=== PATIENT | female | born 1985 | race Caucasian/White ===

== ENCOUNTER 2016-08-31 22:22 | Emergency (ER) | payer SELFPAY ==
[~2016-08-31] VITALS: Ht 167.6 cm; Wt 65.9 kg
[~2016-08-31 22:22] MED LIST: ACET1TAB40 PO; ALPR0.5T PO; BEN25 PO; CIPR500T4 PO; FLUO10CA66 PO; HYDR-3498 PO; IBUP-1542 PO; TRAZ50TA18 PO
[2016-08-31 22:34] VITALS: Ht 167.6 cm; Wt 65.9 kg
== END 2016-09-01 01:20 | disposition left against medical advice (07) ==
LOC: FTE 22:22 → E/R 09-01 01:20
DX: Z53.21 Procedure and treatment not carried out due to patient leaving prior to being seen by health care provider (principal)

== ENCOUNTER 2016-09-18 15:02 | Emergency (ER) | payer OTHER ==
[~2016-09-18] VITALS: Ht 157.5 cm; Wt 70.0 kg
[2016-09-18 15:05] VITALS: Ht 157.5 cm; Wt 70.0 kg
[2016-09-18] MEDS ORDERED: HYDROCODONE/APAP (5/325) TAB PO ONE (16:30)
--- NOTE | 2016-09-18 17:58 | RADRPT ---
PROCEDURE: XR Left Shoulder. CLINICAL INDICATION: Trauma due to a fall. Left shoulder pain. TECHNIQUE: Three views. Frontal internal rotation, frontal external rotation, and scapular Y-view . COMPARISON: No prior study is available for comparison. FINDINGS: There is no fracture or dislocation. The soft tissues are normal. Articular surfaces are intact. There is no lytic or blastic lesion. There is no radiopaque foreign body. IMPRESSION: 1. Normal images of the left shoulder. RPTAT: QQ .Marcos Brisneo MD, MD Date Time Electronically viewed and signed by .Marcos Briseno MD, on 09/18/2016 17:57 .R/
--- NOTE | 2016-09-18 17:58 | RADRPT ---
PROCEDURE: Left knee radiographs. CLINICAL INDICATION: Trauma due to a fall. Left knee pain. TECHNIQUE: Three views. Frontal, lateral, and oblique. COMPARISON: No prior studies are available for comparison. FINDINGS: There is no fracture or dislocation. The soft tissues are normal. Articular surfaces are intact. There is no lytic or blastic lesion. There is no radiopaque foreign body. IMPRESSION: 1. Normal images of the left knee. RPTAT: QQ .Marcos Briseno MD, MD Date Time Electronically viewed and signed by .Marcos Briseno MD, MD on 09/18/2016 17:58 .R/
--- NOTE | 2016-09-18 17:59 | RADRPT ---
PROCEDURE: XR Left Ankle. CLINICAL INDICATION: Trauma due to a fall. Left ankle pain. TECHNIQUE: 3 views. Frontal, lateral, and oblique. COMPARISON: 10/13/2014. FINDINGS: There is no fracture or dislocation. The soft tissues are normal. Articular surfaces are intact. There is no lytic or blastic lesion. There is no radiopaque foreign body. IMPRESSION: 1. Normal images of the left ankle. RPTAT: QQ .Marcos Briseno MD, MD Date Time Electronically viewed and signed by .Marcos Briseno MD, MD on 09/18/2016 17:59 .R/
--- NOTE | 2016-09-18 18:00 | RADRPT ---
PROCEDURE: XR Left Foot. CLINICAL INDICATION: Trauma due to a fall. Left foot pain. TECHNIQUE: Three views. Frontal, lateral, and oblique. COMPARISON: None. FINDINGS: There is no fracture or dislocation. The soft tissues are normal. Articular surfaces are intact. There is no lytic or blastic lesion. There is no radiopaque foreign body. IMPRESSION: 1. Normal images of the left foot. RPTAT: QQ .Marcos Briseno MD, MD Date Time Electronically viewed and signed by .Marcos Briseno MD, MD on 09/18/2016 18:00 .R/
[2016-09-18] MEDS ORDERED: ACET500C5 PO (18:31)
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
== END 2016-09-18 19:28 | disposition home or self-care (01) ==
LOC: FTE 15:02
DX: M79.605 Pain in left leg (principal)
CPT/HCPCS: 73030; 73562; 73610; 73630; Z7610

== ENCOUNTER 2016-12-11 23:38 | Emergency (ER) | payer SELFPAY ==
[~2016-12-11] VITALS: Ht 162.6 cm; Wt 63.5 kg
[~2016-12-11 23:38] MED LIST changes: +ACET500C5 PO
[2016-12-11 23:40] VITALS: Ht 162.6 cm; Wt 63.5 kg
== END 2016-12-12 00:50 | disposition left against medical advice (07) ==
LOC: FTE 23:38
DX: Z53.21 Procedure and treatment not carried out due to patient leaving prior to being seen by health care provider (principal)

== ENCOUNTER 2017-03-18 02:43 | Inpatient (IN) | END 2017-03-20 11:15 | disposition left against medical advice (07) | DRG 781 ==

== ENCOUNTER 2017-03-20 17:23 | Outpatient (CLI) | END 2017-03-20 17:36 | disposition left against medical advice (07) ==

== ENCOUNTER 2017-05-02 17:01 | Outpatient (CLI) | END 2017-05-02 20:42 | disposition home or self-care (01) ==

== ENCOUNTER 2017-05-20 15:20 | Inpatient (IN) | END 2017-05-22 02:00 | disposition left against medical advice (07) | DRG 781 ==

== ENCOUNTER 2017-06-07 02:53 | Outpatient (CLI) | END 2017-06-07 05:15 | disposition home or self-care (01) ==

== ENCOUNTER → 2017-09-21 | Emergency (ER) | END | disposition left against medical advice (07) ==

== ENCOUNTER 2018-07-26 13:54 | Inpatient (IN) | payer OTHER ==
[2018-07-26] VITALS (7 sets, daily range): BP systolic 97–117; BP diastolic 57–74; PULSE 53–69; RESP 18–20; Ht 177.8 cm; Wt 88.0 kg
[~2018-07-26] VITALS: Ht 177.8 cm; Wt 88.0 kg
[~2018-07-26 13:54] MED LIST changes: -ACET1TAB40 PO; -ACET500C5 PO; -ALPR0.5T PO; -BEN25 PO; +CALC600T24 PO; -CIPR500T4 PO; +FERR134T PO; -FLUO10CA66 PO; -HYDR-3498 PO; -IBUP-1542 PO; +PNV11TAB PO; -TRAZ50TA18 PO
[2018-07-26] MEDS ORDERED: TERBUTALINE 1 ML ONE (14:40)
[2018-07-26] MEDS ORDERED: TERBUTALINE 1 MG/ML INJ SC ONE (14:45)
[2018-07-26] MEDS ORDERED: CARBOPROST 250 MCG INJ IM PRN ×2 (15:00→20:00)
[2018-07-26] MEDS ORDERED: OXYTOCIN 30 UNITS/LR 500 ML IV PRN ×2 (15:00→20:00)
[2018-07-26] MEDS ORDERED: MISOPROSTOL 200 MCG TAB PR PRN ×2 (15:00→20:00)
[2018-07-26] MEDS ORDERED: CEFAZOLIN 2 GM/50 ML (PMX) 50 ML IVPB SCH ×2 (15:00→18:00)
--- NOTE | 2018-07-26 15:19 | HP ---
Date/Time of Note Date/Time of Note DATE: 07/26/18 TIME: 15:17 OB - History Hx of Present Free Text/Dictation 33-year-old 6 para 4 at 35 weeks and 2 days of gestation with estimated date of delivery August 28, 2018 Patient presents with chief complaint of abdominal pain and uterine contractions with pain level of 9 out of 10 She reports positive movement, denies any vaginal bleeding or leaking fluid GBS status is unknown Past obstetrical history significant for x4 Ectopic x1 Estimated Due Date: Aug 28, 2018 : 6 Para: 4 Care: Limited Care Past Family/Social History * Past Medical history of Syphilis in 2018 Family history noncontributory to this Past surgical history significant for x4 Ectopic x1 OB Admission Exam Physical Exam HEENT: WNL Heart: Rhythm Normal Lungs: Clear, Equal Abdomen: WNL Extremities: Normal Reflexes: Normal Cervical Dilatation: Fingertip Membranes: Intact Heart Rate: 140's Accelerations: Accelerations Present Decelerations: No Decelerations Varibility: Moderate Contractions on Admission: < 5 Minutes Apart Intensity: Moderate Last 72 hours Lab Results Urine Results - 72 Hrs Test 07/26/18 17:00 Urine Color YELLOW (YELLOW) Urine Clarity CLOUDY (CLEAR) A Urine pH 6.0 (5.0-9.0) Urine Specific [place] 1.025 (1.003-1.030) Urine Ketones NEGATIVE mg/dL (NEGATIVE) Urine Nitrite NEGATIVE mg/dL (NEGATIVE) Urine Bilirubin NEGATIVE mg/dL (NEGATIVE) Urine Urobilinogen 1+ mg/dL (NEGATIVE) H Urine Leukocyte Esterase 2+ Carina/ul (NEGATIVE) H Urine Microscopic RBC 1 /HPF (0-5) Urine Microscopic WBC 6 /HPF (0-5) H Urine Squamous Epithelial Cells FEW /HPF (FEW) Urine Mucus FEW /HPF (NONE SEEN) A Urine Hemoglobin NEGATIVE mg/dL (NEGATIVE) Urine Glucose NEGATIVE mg/dL (NEGATIVE) Urine Total Protein NEGATIVE mg/dl (NEGATIVE) Hematology - 72 Hrs Test 07/26/18 15:05 Hematocrit 28.2 % (37.0-47.0) L Hemoglobin 8.2 g/dl (12.0-16.0) L Mean Corpuscular Hemoglobin 21.9 pg (29.0-33.0) L Mean Corpuscular Hemoglobin Concent 29.1 g/dl (32.0-37.0) L Mean Corpuscular Volume 75.2 fl (82.0-101.0) L Mean Platelet Volume 9.6 fl (7.4-10.4) Platelet Count 349 10^3/UL (140-415) Red Blood Count 3.75 10^6/ul (4.20-5.40) L Red Cell Distribution Width 17.0 % (11.5-14.5) H White Blood Count 8.5 10^3/ul (4.8-10.8) Chemistry Test 07/26/18 15:05 Sodium Level 139 mmol/L (135-144) Potassium Level 4.1 mmol/L (3.5-5.1) Chloride Level 108 mmol/L (97-110) Carbon Dioxide Level 23 mmol/L (21-31) Anion Gap 8 (5-13) Blood Urea Nitrogen 11 mg/dl (7-20) Creatinine 0.67 mg/dl (0.44-1.00) Est Glomerular Filtrat Rate mL/min > 60 mL/min (>60) Glucose Level 109 mg/dl (70-220) Calcium Level 8.6 mg/dl (8.4-10.2) Total Bilirubin 0.3 mg/dl (0.2-1.3) Direct Bilirubin 0.00 mg/dl (0.00-0.20) Indirect Bilirubin 0.3 mg/dl (0-1.1) Aspartate Amino Transf (AST/SGOT) 18 IU/L (15-46) Alanine Aminotransferase (ALT/SGPT) 13 IU/L (13-69) Alkaline Phosphatase 158 IU/L (42-121) H Total Protein 6.8 g/dl (6.1-8.1) Albumin 3.3 g/dl (3.3-4.9) Globulin 3.50 g/dl (1.3-3.2) H Albumin/Globulin Ratio 0.94 PROCEDURE: US OB. CLINICAL INDICATION: Size and dates TECHNIQUE: Multiple sonographic images of the pelvis and gravid uterus were obtained. The images were reviewed on a PACS workstation. COMPARISON: No prior studies are available for comparison. FINDINGS: Gestation: Single live intrauterine gestation. Cardiac activity: 123 beats per minute. Presentation: Vertex. Placenta: Location: Anterior. Appearance: No previa or abruption. Measurements: BPD = 9.3 cm, 37 weeks and 6 days HC = 33.1 cm, 37 weeks and 4 days AC = 34.9 cm, 38 weeks and 6 days FL = 7.1 cm, 36 weeks and 2 days Gestational Age: AUA estimated gestational age: 37 weeks 5 days LMP estimated gestational age: 35 weeks 2 days AUA estimated date of delivery: 08/11/18 The EFW = 3375 g, >97%ile based on LMP age. RPTAT: AA IMPRESSION: Single live intrauterine gestation of 37 weeks 5 days by ultrasound criteria. Larger than gestational age by 2.5 weeks. .Gilberto Braswell MD, MD Date Time Electronically viewed and signed by .Gilberto Braswell MD, MD on 07/26/2018 15:42 .S/ CC: HALIMA CHAVEZ MD [phone] PROCEDURE: US OB. CLINICAL INDICATION: Pain TECHNIQUE: Multiple sonographic images of the pelvis were obtained. The images were reviewed on a PACS workstation. COMPARISON: 06/07/2017 FINDINGS: There is a single live intrauterine . cardiac activity is identified at a rate of 123 beats per minute. presentation is cephalic. Placenta is anterior grade II. Cervix is closed with a length of 2.7 cm Biophysical profile score is as follows: Breathing 2 Movements 2 Tone 2 Fluid volume 2 Amniotic fluid index = 16.5 cm Total biophysical profile score = 8/8 IMPRESSION: Biophysical profile score = 8/8 Cervix closed with a length of 2.7 cm RPTAT: HH .Kris Gonzalez MD, Date Time Electronically viewed and signed by .Kris Gonzalez MD, MD on 07/26/2018 18:01 .W/ CC: HALIMA CHAVEZ MD [phone] OB Assessment/Plan Reason for admission: labor Other plan: Admit to patient labor and delivery Continuous heart rate monitoring IV fluids Terbutaline subQ as needed Magnesium sulfate for prevention of labor Betamethasone for lung maturity ABXs prophylaxis Patient continues to have uterine contractions with pain level of 9 out of 10 despite tocolytics We will proceed with a repeat Patient counseled regarding all benefit and risks including but not limited to infection, bleeding which may require blood transfusion, trauma to other organs including bladder and bowel Patient understands the plan of care and agrees to proceed HALIMA CHAVEZ MD July 26, 2018 15:19
[2018-07-26] MEDS: BETAMET NA PHOS/AC(6 MG/ML) 2 ML INJ SYG IM SCH (15:25)
[2018-07-26] MEDS: LACTATED RINGER'S 1,000 ML IV SCH ×2 (15:25→19:27)
[2018-07-26] MEDS: CEFAZOLIN 2 GM/50 ML (PMX) 50 ML IVPB SCH (17:58)
[2018-07-26] MEDS ORDERED: MAGNESIUM SULFATE 4 GM/100 ML 100 ML IV ONE (18:00)
[2018-07-26] MEDS ORDERED: ONDANSETRON 4 MG INJ ONE (19:23)
[2018-07-26] MEDS ORDERED: CITRIC ACID/NA CITRATE 30 ML CUP ONE (19:23)
[2018-07-26] MEDS ORDERED: ONDANSETRON 4 MG INJ IV STA (19:25)
[2018-07-26] MEDS ORDERED: CITRIC ACID/NA CITRATE 30 ML CUP PO ONE ×2 (19:30→20:00)
[2018-07-26] MEDS: CEFAZOLIN 1 GM/50 ML (PMX) 50 ML IVPB SCH (19:32)
--- NOTE | 2018-07-26 19:32 | PREAC ---
Date/Time of Note Date/Time of Note DATE: 07/26/18 TIME: 19:30 Anesthesia Eval and Record Evaluation Time Pre-Procedure Interview DATE: 07/26/18 TIME: 19:30 Age 33 Sex female NPO: 8 hrs Preoperative diagnosis Repeat in Labor Planned procedure Past Medical History Past Medical History: Includes Heme: Anemia : : (6), Para: (4), Gestational age: (35) Surgery & Anesthesia Issues No known issue Meds Anticoagulation: No Beta Annamaria within 24 hr: No Reason Beta Annamaria not given: Pt. not on B-Annamaria Reported Medications Calcium Carbonate* (Calcium Carbonate*) 600 MG Ca Tab, 600 MG PO DAILY, TAB 05/20/17 Ferrous Sulfate (Iron) 134 Mg Tablet, 134 MG PO DAILY, TAB 05/20/17 [id number] ( 19) 1 Each Tablet, 1 TAB PO DAILY, TAB 05/20/17 Current Medications Lactated Ringer's 1,000 ml @ 125 mls/hr Q8H IV Last administered on 07/26/18at 15:25; Admin Dose 125 MLS/HR; Start 07/26/18 at 14:33 Terbutaline Sulfate (Brethine) 0.25 mg Q3H SC ; Start 07/26/18 at 15:00 Betamethasone Acet/Betameth SodPhos (Celestone Soluspan) 12 mg Q24H IM Last administered on 07/26/18at 15:25; Admin Dose 12 MG; Start 07/26/18 at 15:00; Stop 07/27/18 at 15:01 Cefazolin Sodium/ Dextrose 50 ml @ 100 mls/hr ONCE IVPB ; Start 07/26/18 at 15:00 Oxytocin/Lactated Ringer's 500 ml @ 0 mls/hr ONCE PRN IV .VAGINAL BLEEDING; Start 07/26/18 at 15:00 Carboprost Tromethamine (Hemabate) 250 mcg ONCE PRN IM .VAGINAL BLEEDING; Start 07/26/18 at 15:00 Misoprostol (Cytotec) 1,000 mcg ONCE PRN VT .VAGINAL BLEEDING; Start 07/26/18 at 15:00 Magnesium Sulfate 500 ml @ 50 mls/hr Q10H IV ; Start 07/26/18 at 17:35 Cefazolin Sodium/ Dextrose 50 ml @ 100 mls/hr Q8 IVPB Last administered on 07/26/18at 17:58; Admin Dose 100 MLS/HR; Start 07/26/18 at 23:00 Citric Acid/ Sodium Citrate (Bicitra) 30 ml ONCE ONCE PO ; Start 07/26/18 at 19:30; Stop 07/26/18 at 19:31 Meds reviewed: Yes Allergies Coded Allergies: fish derived (Verified Allergy, Unknown, 05/21/17) iodine (Verified Allergy, Unknown, 05/20/17) mercury (elemental) (Verified Allergy, Unknown, 05/20/17) Allergies Reviewed: Yes Labs/Studies Labs Reviewed: Reviewed by anesthesiologist Result Diagram: 07/26/18 1505 07/26/18 1505 Laboratory Tests 07/26/18 15:05 Blood Bank Test 07/26/18 15:05 Antibody Screen NEGATIVE Blood Type O POSITIVE Rh Immune Globulin Candidate NO test: Positive Studies: ECG (n/a), CXR (n/a) Pre-procedure Exam Airway: Adequate mouth opening, Adequate thyromental dist Mallampati: Mallampati II Teeth: Normal Lung: Normal Heart: Normal ASA Physical Status ASA physical status: 2 Emergency: None Planned Anesthetic Neuraxial: Spinal Planned Pain Management Sub-arachniod narcotics Pre-operative Attestations Prior to commencing anesthesia and surgery, the patient was re-evaluated, there was verification of: *The patient's identity *The results of appropriate recent lab work and preoperative vital signs *The above evaluation not changing prior to induction *Anesthetic plan, risk benefits, alternative and complications discussed with patient/family; questions answered; patient/family understands, accepts and wishes to proceed. KELSEY HICKS MD July 26, 2018 19:32
[2018-07-26] MEDS ORDERED: PHENYLephrine (100 MCG/ML) 10ML SYG ONE (19:34)
[2018-07-26] MEDS ORDERED: morphine SULFATE/PF (10 MG/10 ML) INJ ONE (19:34)
[2018-07-26] MEDS ORDERED: OXYTOCIN 10 UNIT INJ ONE (19:34)
[2018-07-26] MEDS ORDERED: OXYTOCIN 30 UNITS/LR 500 ML IV SCH (19:40)
[2018-07-26] MEDS ORDERED: LACTATED RINGER'S 1,000 ML IV SCH (19:40)
[2018-07-26] MEDS ORDERED: MAGNESIUM HYDROXIDE 30ML CUP PO PRN (20:00)
[2018-07-26] MEDS ORDERED: BISACODYL 10 MG SUPP PR PRN (20:00)
[2018-07-26] MEDS ORDERED: SENNA/DOCUSATE NA (8.6MG/50MG) TAB PO PRN (20:00)
[2018-07-26] MEDS ORDERED: METHYLERGONOVINE 0.2 MG INJ IM PRN (20:00)
[2018-07-26] MEDS ORDERED: ONDANSETRON 4 MG INJ IV ONE (20:00)
[2018-07-26] MEDS ORDERED: ACETAMINOPHEN 325 MG TAB PO PRN (20:00)
[2018-07-26] MEDS ORDERED: ONDANSETRON 4 MG INJ IV PRN ×2 (20:00→20:30)
[2018-07-26] MEDS ORDERED: METHYLERGONOVINE 0.2 MG INJ ONE (20:06)
[2018-07-26] MEDS ORDERED: MEPERIDINE 100 MG INJ ONE (20:14)
[2018-07-26] MEDS ORDERED: DEXAMETHASONE 4 MG/ML 1 ML INJ ONE (20:17)
[2018-07-26] MEDS ORDERED: KETOROLAC 30 MG INJ ONE (20:17)
[2018-07-26] MEDS ORDERED: METOCLOPRAMIDE 10 MG INJ ONE (20:17)
[2018-07-26] MEDS ORDERED: HYDROCODONE/APAP (5/325) TAB PO PRN (20:30)
[2018-07-26] MEDS ORDERED: DIPHENHYDRAMINE 50 MG INJ IV PRN (20:30)
[2018-07-26] MEDS ORDERED: NALBUPHINE HCL (10 MG/1 ML) INJ IV PRN (20:30)
[2018-07-26] MEDS ORDERED: morphine 2 MG INJ IV PRN ×2 (20:30)
[2018-07-26] MEDS ORDERED: ACETAMINOPHEN 500 MG TAB PO PRN (20:30)
[2018-07-26] MEDS ORDERED: HYDROmorphONE 0.5 MG/0.5 ML SYG IV PRN ×2 (20:30)
[2018-07-26] MEDS ORDERED: NALOXONE (0.4 MG/ML) INJ IV PRN (20:30)
--- NOTE | 2018-07-26 20:56 | OPR ---
Operative Report Planned Procedure Procedure date July 26, 2018 Procedure(s) Repeat section Performed by see signature line Acting Section Chief: KASSIE HAIR MD Anesthesiologist: KELSEY HICKS MD Pre-procedure diagnosis 1. previous x4 2. labor 3. abdominal pain with pain level 9 out of 10 high risk for uterine rupture [id number] Anesthesia Type: [id number] spinal Post-Procedure Post-procedure diagnosis 1. previous x4 2. labor 3. abdominal pain with pain level 9 out of 10 high risk for uterine rupture Findings Live Baby [girl], Apgars [8] and [9], weight [3190 g/7 pounds 1 ounce], [vertex] presentation EBL 600cc IV fluid 1200cc Urine output 500cc Estimated Blood Loss: 600 - 700 mls Specimen(s) none Grafts/Implant(s) none Complication(s) none Pt Condition post procedure: stable Disposition: PACU Procedure Description Patient was taken to the operating room after adequate amount of anesthesia was given patient was prepped and draped in normal sterile fashion Low transverse Pfannenstiel skin incision was made. Incision was carried through to the underlying layer of fascia using Bovie Fascia was incised in the midline and incision was extended bilaterally using Bovie Both anterior and posterior edge of the fascia were from underlying layer of rectus muscles Rectus muscles were in the midline and peritoneum was identified and entered sharply without any difficulty Peritoneum was extended bilaterally manually. An Damian retractor was placed 5 cm window noted in the lower uterine segment. Uterine incision was made well above the window on the uterus. Amnionic sac was ruptured and fetus was delivered from vertex presentation and after 30 seconds delayed cord clamping the fetus was handed immediately to the waiting ICU team. Placenta was delivered manually intact. Uterus was cleared off of all clots and debris. Uterine incision was closed with 1 Vicryl suture in both running locked and a second layer imbricating fashion Multiple irrigations were performed and excellent hemostasis was noted. Both adnexa appeared normal Surgicel was placed on the incision line. Damian retractor was removed Peritoneal closure proceeded with 2-0 Vicryl in a running fashion. Rectus muscles were reapproximated with 2-0 Vicryl Surgicel was placed on the rectus muscles to provide further hemostasis Fascia was closed with 0-Vicryl suture in 2 separate segments in a running fashion Subcutaneous layer was closed with 0- plain suture in a continuous fashion Skin was closed with end-sorb salvador and Dermabond glue All sponge, lap, needle counts were reported to be correct Patient tolerated the procedure well and taken back to recovery room in a stable condition HALIMA CHAVEZ MD July 26, 2018 20:56
--- NOTE | 2018-07-26 20:59 | PAC ---
Date/Time of Note Date/Time of Note DATE: 07/26/18 TIME: 20:59 Post-Anesthesia Notes Post-Anesthesia Note Last documented vital signs T: 97.8 Activity: WNL Respiratory function: WNL Cardiovascular function: WNL Mental status: Baseline Pain reasonably controlled: Yes Hydration appropriate: Yes Nausea/Vomiting absent: Yes KELSEY HICKS MD July 26, 2018 20:59
[2018-07-26] MEDS: TERBUTALINE 1 MG/ML INJ SC SCH (21:00)
[2018-07-27] MEDS: TERBUTALINE 1 MG/ML INJ SC SCH ×5 (01:37→06:00)
[2018-07-27] MEDS: MAGNESIUM SULFATE 20 GM/500 ML 500 ML IV SCH ×4 (01:38→21:40)
[2018-07-27] MEDS: KETOROLAC 30 MG INJ IV PRN ×2 (03:55→15:16)
[2018-07-27] MEDS: CEFAZOLIN 1 GM/50 ML (PMX) 50 ML IVPB SCH (03:55)
[2018-07-27 04:42] VITALS: BP 118/63; PULSE 63; RESP 18
[2018-07-27] MEDS: CEFAZOLIN 2 GM/50 ML (PMX) 50 ML IVPB SCH (06:00)
[2018-07-27] MEDS: LACTATED RINGER'S 1,000 ML IV SCH ×3 (06:33→16:27)
[2018-07-27 08:00] VITALS: BP 108/51; PULSE 67; RESP 16
--- NOTE | 2018-07-27 10:30 | QN ---
Documentation Comment POD#1 is stable afebrile tolerates diet No VB +Flatus +Adequate urine VS Stable Gen NAD Abd soft NT ND Dressing to be removed Genitalia No blood at perineum --->Ambulation --->Advance the diet RAQUEL ATWOOD M.D. July 27, 2018 10:30
[2018-07-27 12:00] VITALS: BP 107/51; PULSE 68; RESP 18
[2018-07-27] MEDS ORDERED: PENICILLIN G K 5,000,000 UNITS in DEXTROSE 5% 100 ML IVPB ONE (12:30)
[2018-07-27] MEDS: BETAMET NA PHOS/AC(6 MG/ML) 2 ML INJ SYG IM SCH (15:00)
[2018-07-27 16:00] VITALS: BP 98/63; PULSE 61; RESP 18
[2018-07-27] MEDS: PENICILLIN G K 2,500,000 UNITS in DEXTROSE 5% 50 ML IVPB SCH ×2 (17:51→21:19)
[2018-07-27] MEDS: IBUPROFEN 600 MG TAB PO PRN (20:43)
[2018-07-27] MEDS: OXYCODONE/ACETAMINOPHEN (5/325) TAB PO PRN (20:44)
[2018-07-27 20:45] VITALS: BP 116/55; PULSE 65; RESP 18
[2018-07-28] MEDS: PENICILLIN G K 2,500,000 UNITS in DEXTROSE 5% 50 ML IVPB SCH ×6 (01:19→21:40)
[2018-07-28 04:00] VITALS: BP 113/56; PULSE 70; RESP 19
[2018-07-28] MEDS: LACTATED RINGER'S 1,000 ML IV SCH (05:36)
[2018-07-28] MEDS: LANOLIN HPA 1 PKT TOP PRN (05:37)
[2018-07-28] MEDS: IBUPROFEN 600 MG TAB PO PRN ×2 (05:37→17:45)
[2018-07-28] MEDS: OXYCODONE/ACETAMINOPHEN (5/325) TAB PO PRN ×4 (05:37→20:16)
[2018-07-28 08:00] VITALS: BP 121/82; PULSE 67; RESP 16
[2018-07-28] MEDS ORDERED: SOD CHLORIDE 0.9% 1,000 ML IV SCH (09:30)
[2018-07-28 16:00] VITALS: BP 102/65; PULSE 65; RESP 17
[2018-07-28 20:30] VITALS: BP 118/69; PULSE 69; RESP 18
[2018-07-28] MEDS ORDERED: DIPHENHYDRAMINE 25 MG CAP PO ONE (23:30)
[2018-07-28] MEDS ORDERED: ACETAMINOPHEN 500 MG TAB PO ONE (23:30)
[2018-07-29] MEDS ORDERED: PENICILLIN G K 2,500,000 UNITS in DEXTROSE 5% 50 ML IVPB SCH (01:00)
[2018-07-29 04:00] VITALS: BP 113/56; PULSE 70; RESP 18
--- NOTE | 2018-07-29 04:04 | PN ---
Date/Time of Note Date/Time of Note DATE: 07/29/18 TIME: 03:59 OB Subjective Subjective Subjective Late entry note. Patient seen on 07/28/2018 at 22:00 POD#2 Patient is doing well. She denies nausea, vomiting, shortness of breath, chest pain, headache. She has been ambulating without difficulty, tolerating regular diet. Pain is well controlled on current medications OB Objective Objective Objective Vital Signs Date Temp Pulse Resp B/P (MAP) Pulse Ox O2 O2 Flow FiO2 Time Delivery Rate 07/28/18 98.2 69 18 118/69 Room Air 20:30 (85) 07/26/18 100 22:15 General: AAO X 3, comfortable, NAD, appropriate mood and affect. ABD: +BS. Soft, non-tender. Uterus 2 cm below umbilicus Incision: Clear, dry, intact. No erythema, drainage or induration. Flank: No CVA tenderness (B/L) LE: Mild edema. No clubbing, cyanosis, thigh or calf tenderness (B/L). Homans 'sign is negative OB Assessment/Plan Other plan: 33-year-old X4T6-2-7-7 s/p repeat delivery at 35 weeks and 2 days. POD#2 - AF, VSS - Contraception methods with R/B/A/FR discussed - Continue care 2) patient has history of syphilis which was treated in 2018. She was treated with penicillin G since admission for positive RPR. FTAAB ordered. Penicillin discontinued. ID consult tomorrow 3) severe anemia: She has received 1 packed RBC, second packed RBC will be given tonight. Repeat CBC in a.m. 4) Multiple social issues. Patient was seen by licensed social worker. Patient signed out to NANCY Baird July 29, 2018 04:04
[2018-07-29] MEDS: OXYCODONE/ACETAMINOPHEN (5/325) TAB PO PRN ×4 (04:08→20:51)
[2018-07-29] MEDS ORDERED: DIPHENHYDRAMINE 50 MG INJ IV ONE (05:00)
[2018-07-29] MEDS ORDERED: METHYLPREDNISOLONE 40 MG INJ IV ONE (05:00)
[2018-07-29] MEDS ORDERED: ACETAMINOPHEN 325 MG TAB PO ONE (05:00)
[2018-07-29 09:00] VITALS: BP 108/60; PULSE 56; RESP 17
[2018-07-29] MEDS: LANOLIN HPA 1 PKT TOP PRN (09:36)
--- NOTE | 2018-07-29 12:57 | CONS ---
Assessment/Plan Assessment/Plan Hospital Course (Demo Recall) 33 yo F s/p recent delivery at 35 + weeks with C section POD #2 today for who we are consulted for LE shaking and cramps * Iron deficiency likely causing lower extremity cramps, patient also noted with hypomagnesemia. * severe anemia 2/2 chronic iron deficiency with superimposed blood loss s/p transfusion of 2 units PRBC * patient has history of syphilis which was treated in 2018. She was treated with 5, 000, 0000 units penicillin G on admission for positive RPR Recommendations -Recommended counseling on maintenance of vitamin which contains magnesium, -agree with IV iron infusion to be continued orally at discharge 3 times daily for at least 1 month and then 2 times daily subsequently. -Patient should get vitamin C in addition to that to improve absorption and stool softeners to alleviate side effect of constipation. -patient will need repeat RPR in 6 and 12 months i.e Jan 2019 and July 2019 or more frequently if followup is a concern. -She was advised to communicate this to PCP -Once patient has received IV iron infusion as well as IV magnesium infusion, patient is cleared for discharge from a medical standpoint, if however patient needs to remain in-house, we will continue to follow with you. -Thank you for the consult Consultation Date/Type/Reason Admit Date/Time July 26, 2018 at 14:45 Date/Time of Note DATE: 07/29/18 TIME: 12:46 Hx of Present Illness [id number] 6 para 4 who had presented at 35 weeks and 2 days quad, with symptoms of labor and had a history of 4 prior sections and one ectopic . She underwent a repeat section with successful delivery July 26, 2018. However postoperatively she has been having some lower extremity muscle spasms and so medicine team was consulted. She did receive 2 units of packed red cells for severe anemia with hemoglobin of 6.3. Also noted is a mildly low magnesium levels as well as borderline iron deficiency which are likely responsible for her symptoms.She has had no passing out episodes, no lower extremity paresis, no numbness or focal weakness. She denies headaches, vision changes. She also denies chest pain. 12 point review if systems was done and pertinent findings are as noted. Past Medical History * anemia Home Meds Reported Medications Calcium Carbonate* (Calcium Carbonate*) 600 MG Ca Tab, 600 MG PO DAILY, TAB 05/20/17 Ferrous Sulfate (Iron) 134 Mg Tablet, 134 MG PO DAILY, TAB 05/20/17 [id number] Lrrbiexm-DX-DIB ( 19) 1 Each Tablet, 1 TAB PO DAILY, TAB 05/20/17 Medications Current Medications Acetaminophen/ Hydrocodone Bitart ([place] (5/325)) 1 tab Q4H PRN PO .PAIN 4-6; Start 07/26/18 at 20:30 Diphenhydramine HCl (Benadryl) 25 mg Q4H PRN IV .PRURITUS Last administered on 07/27/18at 13:57; Admin Dose 25 MG; Start 07/26/18 at 20:30 Nalbuphine HCl (Nubain) 10 mg Q4H PRN IV .PRURITUS; Start 07/26/18 at 20:30 Naloxone HCl (Narcan) 0.2 mg Q2M PRN IV .RESP RATE; Start 07/26/18 at 20:30 Miscellaneous Information (* Miscellaneous Pharmacy Order) DURAMORPH: 0.2 MG SPI... GIVEN NEURAXIAL XX ; Start 07/26/18 at 20:30 Oxycodone/ Acetaminophen (Percocet (5/ 325)) 1 tab Q4H PRN PO .PAIN 4-6 Last administered on 07/28/18at 05:37; Admin Dose 1 TAB; Start 07/26/18 at 20:00 Oxycodone/ Acetaminophen (Percocet (5/ 325)) 2 tab Q4H PRN PO .PAIN 7-10 Last administered on 07/29/18at 09:36; Admin Dose 2 TAB; Start 07/26/18 at 20:00 Simethicone (Mylicon) 160 mg Q8H PRN PO .GAS; Start 07/26/18 at 20:00 Lanolin (Lanolin Hpa) 1 applic BEDSIDE MEDICATION PRN TOP .NIPPLES Last administered on 07/29/18at 09:36; Admin Dose 1 APPLIC; Start 07/26/18 at 20:00 Methylergonovine Maleate (Methergine) 0.2 mg ONCE PRN IM .VAGINAL BLEEDING; Start 07/26/18 at 20:00 Carboprost Tromethamine (Hemabate) 250 mcg ONCE PRN IM .VAGINAL BLEEDING; Start 07/26/18 at 20:00 Misoprostol (Cytotec) 1,000 mcg ONCE PRN WA .VAGINAL BLEEDING; Start 07/26/18 at 20:00 Acetaminophen (Tylenol Tab) 650 mg Q6H PRN PO MILD PAIN(1-3)OR ELEVATED TEMP; Start 07/26/18 at 20:00 Ibuprofen (Motrin) 600 mg Q6H PRN PO PAIN Last administered on 07/28/18at 17:45; Admin Dose 600 MG; Start 07/26/18 at 20:00 Senna/Docusate Sodium (Senokot-S) 1 tab BID PRN PO CONSTIPATION Last administered on 07/27/18at 09:07; Admin Dose 1 TAB; Start 07/26/18 at 20:00 Magnesium Hydroxide (Milk Of Mag) 30 ml BID PRN PO CONSTIPATION; Start 07/26/18 at 20:00 Sodium Chloride 1,000 ml @ 0 mls/hr Q0M IV Last administered on 07/28/18at 10:00; Admin Dose 100 MLS/HR; Start 07/28/18 at 09:30 Ferric Sodium Gluconate Complex 125 mg/Sodium Chloride 100 ml @ 100 mls/hr DAILY@1300 IVPB Last administered on 07/29/18at 12:35; Admin Dose 100 MLS/HR; Start 07/29/18 at 13:00; Stop 07/31/18 at 13:59 Allergies: Coded Allergies: fish derived (Verified Allergy, Unknown, 05/21/17) iodine (Verified Allergy, Unknown, 05/20/17) mercury (elemental) (Verified Allergy, Unknown, 05/20/17) Past Surgical History c section x 4 tonsillectomy Family History Significant Family History: no pertinent family hx Social History Smoking Status: Never smoker Exam/Review of Systems Exam Vitals Vital Signs Date Temp Pulse Resp B/P (MAP) Pulse Ox O2 O2 Flow FiO2 Time Delivery Rate 07/29/18 98.5 70 18 113/56 Room Air 04:00 (75) 07/26/18 100 22:15 Intake and Output 07/28/18 07/28/18 07/29/18 1515:00 23:00 07:00 IntakeIntake Total 50 ml 350 ml BalanceBalance 50 ml 350 ml Constitutional: alert, oriented Head: normocephalic Eyes: PERRL Respiratory: diminished breath sounds Cardiovascular: regular rate and rhythm Gastrointestinal: soft, tender (surgical site clean) Extremities: edema (mild ) Results Result Diagram: 07/29/18 0757 07/28/18 2332 Results 24hrs Laboratory Tests Test 07/28/18 20:12 07/28/18 23:32 07/29/18 07:57 Hemoglobin 7.6 #L 7.6 L Hematocrit 26.4 L 26.0 L Sodium Level 135 Potassium Level 4.2 Chloride Level 104 Carbon Dioxide Level 28 Anion Gap 3 L Blood Urea Nitrogen 17 Creatinine 0.72 Est Glomerular Filtrat Rate mL/min > 60 Glucose Level 98 Calcium Level 8.3 L Iron Level 43 Total Iron Binding Capacity 607 H Percent Iron Saturation 7 L Ferritin 8.5 Total Bilirubin 0.3 Direct Bilirubin 0.00 Indirect Bilirubin 0.3 Aspartate Amino Transf (AST/SGOT) 36 Alanine Aminotransferase (ALT/SGPT) 17 Alkaline Phosphatase 95 Total Protein 5.4 L Albumin 2.6 L Globulin 2.80 Albumin/Globulin Ratio 0.92 White Blood Count 12.0 H Red Blood Count 3.38 L Mean Corpuscular Volume 76.9 L Mean Corpuscular Hemoglobin 22.5 L Mean Corpuscular Hemoglobin Concent 29.2 L Red Cell Distribution Width 17.6 H Platelet Count 308 Mean Platelet Volume 9.9 Immature Granulocytes % 4.300 H Neutrophils % 69.2 Lymphocytes % 15.8 Monocytes % 8.1 Eosinophils % 2.1 Basophils % 0.5 Nucleated Red Blood Cells % 0.7 H Immature Granulocytes # 0.510 H Neutrophils # 8.3 H Lymphocytes # 1.9 Monocytes # 1.0 H Eosinophils # 0.3 Basophils # 0.1 Nucleated Red Blood Cells # 0.1 H Magnesium Level 1.6 L Imaging Imaging urine tox screen negative Mag 1.6 Medications Medication Current Medications Acetaminophen/ Hydrocodone Bitart ([place] (5/325)) 1 tab Q4H PRN PO .PAIN 4-6; Start 07/26/18 at 20:30 Diphenhydramine HCl (Benadryl) 25 mg Q4H PRN IV .PRURITUS Last administered on 07/27/18at 13:57; Admin Dose 25 MG; Start 07/26/18 at 20:30 Nalbuphine HCl (Nubain) 10 mg Q4H PRN IV .PRURITUS; Start 07/26/18 at 20:30 Naloxone HCl (Narcan) 0.2 mg Q2M PRN IV .RESP RATE; Start 07/26/18 at 20:30 Miscellaneous Information (* Miscellaneous Pharmacy Order) DURAMORPH: 0.2 MG SPI... GIVEN NEURAXIAL XX ; Start 07/26/18 at 20:30 Oxycodone/ Acetaminophen (Percocet (5/ 325)) 1 tab Q4H PRN PO .PAIN 4-6 Last administered on 07/28/18 05:37; Admin Dose 1 TAB; Start 07/26/18 at 20:00 Oxycodone/ Acetaminophen (Percocet (5/ 325)) 2 tab Q4H PRN PO .PAIN 7-10 Last administered on 07/29/18 09:36; Admin Dose 2 TAB; Start 07/26/18 at 20:00 Simethicone (Mylicon) 160 mg Q8H PRN PO .GAS; Start 07/26/18 at 20:00 Lanolin (Lanolin Hpa) 1 applic BEDSIDE MEDICATION PRN TOP .NIPPLES Last administered on 07/29/18 09:36; Admin Dose 1 APPLIC; Start 07/26/18 at 20:00 Methylergonovine Maleate (Methergine) 0.2 mg ONCE PRN IM .VAGINAL BLEEDING; Start 07/26/18 at 20:00 Carboprost Tromethamine (Hemabate) 250 mcg ONCE PRN IM .VAGINAL BLEEDING; Start 07/26/18 at 20:00 Misoprostol (Cytotec) 1,000 mcg ONCE PRN [place] .VAGINAL BLEEDING; Start 07/26/18 at 20:00 Acetaminophen (Tylenol Tab) 650 mg Q6H PRN PO MILD PAIN(1-3)OR ELEVATED TEMP; Start 07/26/18 at 20:00 Ibuprofen (Motrin) 600 mg Q6H PRN PO PAIN Last administered on 07/28/18 17:45; Admin Dose 600 MG; Start 07/26/18 at 20:00 Senna/Docusate Sodium (Senokot-S) 1 tab BID PRN PO CONSTIPATION Last administered on 07/27/18 09:07; Admin Dose 1 TAB; Start 07/26/18 at 20:00 Magnesium Hydroxide (Milk Of Mag) 30 ml BID PRN PO CONSTIPATION; Start 07/26/18 at 20:00 Sodium Chloride 1,000 ml @ 0 mls/hr Q0M IV Last administered on 07/28/18at 10:00; Admin Dose 100 MLS/HR; Start 07/28/18 at 09:30 Ferric Sodium Gluconate Complex 125 mg/Sodium Chloride 100 ml @ 100 mls/hr DAILY@1300 IVPB Last administered on 07/29/18at 12:35; Admin Dose 100 MLS/HR; Start 07/29/18 at 13:00; Stop 07/31/18 at 13:59 CECI MEJÍA July 29, 2018 12:56
[2018-07-29] MEDS ORDERED: MAGNESIUM SULFATE 2 GM/50 ML 50 ML IVPB ONE (13:00)
[2018-07-29] MEDS ORDERED: SOD FERRIC GLUC COMPLX 125 MG in SOD CHLORIDE 0.9% 100 ML IVPB SCH (13:00)
[2018-07-29 17:21] VITALS: BP 127/81; PULSE 64; RESP 18
[2018-07-29] MEDS: IBUPROFEN 600 MG TAB PO PRN (18:25)
--- NOTE | 2018-07-29 19:44 | PN ---
Date/Time of Note Date/Time of Note DATE: 07/29/18 TIME: 19:33 OB Subjective Subjective Subjective Denies any nausea or vomiting, Breast feeding, Passed flatus. Had bowel movem ent. vaginal bleeding decreased. Had an episode of twiching of her legs last night.consistent with restless leg syndrome. OB Objective Objective Objective GA: A&O, NDA Abdomen: Soft, fundus palpable at the level of umbilicus. Appropriate tenderness in the incision as well as over the lower abdomen noted. Incision: Clean dry and intact Lungs: Clear to auscultation bilaterally CV: RRR Extremities: No calf tenderness, no click no edema no cord palpable Breast: No evidence of mastitis or fissure VS - Last 72 Hours, by Label Date Temp Pulse Resp B/P (MAP) Pulse Ox O2 O2 Flow FiO2 Time Delivery Rate 07/29/18 97.8 64 18 127/81 17:21 (96) 07/29/18 98.0 56 17 108/60 Room Air 09:00 (76) 07/29/18 98.5 70 18 113/56 Room Air 04:00 (75) 07/28/18 98.2 69 18 118/69 Room Air 20:30 (85) 07/28/18 98.2 65 17 102/65 Room Air 16:00 (77) 07/28/18 98.5 67 16 121/82 Room Air 08:00 (95) 07/28/18 98.5 70 19 113/56 Room Air 04:00 (75) 07/27/18 99.0 65 18 116/55 Room Air 20:45 (75) 07/27/18 98.2 61 18 98/63 (75) Room Air 16:00 07/27/18 98.0 68 18 107/51 Room Air 12:00 (69) 07/27/18 98.1 67 16 108/51 Room Air 08:00 (70) 07/27/18 98.3 63 18 118/63 Room Air 04:42 (81) 07/26/18 97.9 61 18 115/66 Room Air 23:40 (82) 07/26/18 97.7 69 20 23:15 07/26/18 59 20 114/73 23:00 (87) 07/26/18 58 20 117/74 22:45 (88) 07/26/18 57 18 115/72 Room Air 22:30 (86) 07/26/18 56 18 105/72 100 Room Air 22:15 (83) 07/26/18 97.8 53 20 97/57 (70) Room Air 22:00 Laboratory Tests Test 07/28/18 20:12 07/28/18 23:32 07/29/18 07:57 Hemoglobin 7.6 #L 7.6 L Hematocrit 26.4 L 26.0 L Sodium Level 135 Potassium Level 4.2 Chloride Level 104 Carbon Dioxide Level 28 Anion Gap 3 L Blood Urea Nitrogen 17 Creatinine 0.72 Est Glomerular Filtrat Rate mL/min > 60 Glucose Level 98 Calcium Level 8.3 L Iron Level 43 Total Iron Binding Capacity 607 H Percent Iron Saturation 7 L Ferritin 8.5 Total Bilirubin 0.3 Direct Bilirubin 0.00 Indirect Bilirubin 0.3 Aspartate Amino Transf (AST/SGOT) 36 Alanine Aminotransferase (ALT/SGPT) 17 Alkaline Phosphatase 95 Total Protein 5.4 L Albumin 2.6 L Globulin 2.80 Albumin/Globulin Ratio 0.92 White Blood Count 12.0 H Red Blood Count 3.38 L Mean Corpuscular Volume 76.9 L Mean Corpuscular Hemoglobin 22.5 L Mean Corpuscular Hemoglobin Concent 29.2 L Red Cell Distribution Width 17.6 H Platelet Count 308 Mean Platelet Volume 9.9 Immature Granulocytes % 4.300 H Neutrophils % 69.2 Lymphocytes % 15.8 Monocytes % 8.1 Eosinophils % 2.1 Basophils % 0.5 Nucleated Red Blood Cells % 0.7 H Immature Granulocytes # 0.510 H Neutrophils # 8.3 H Lymphocytes # 1.9 Monocytes # 1.0 H Eosinophils # 0.3 Basophils # 0.1 Nucleated Red Blood Cells # 0.1 H Magnesium Level 1.6 L OB Assessment/Plan Other Assessment: Status post section Postoperative #3 Severe anemia, status post blood transfusion, due to pre-existing anemia as well as postop status. Asymptomatic Severe iron deficiency, patient had symptoms of restless leg syndrome. Symptoms significantly improved after she received TE[employer] as well as magnesium Discussed with patient continue iron after discharge from the hospital twice a day Patient reports history of syphilis in the past. Labs including RPR and FTA antibody requested. Positive FTA antibody and RPR titer 1-4. Denies any symptoms. Consulted ID, 'gary Dryer's line was contacted and I talked with nurse practitioner and consult was placed. Agreed to be seen tomorrow to discharge home. Case was assigned to the upcoming OB Hospitalist for follow up tomorrow, Dr. alanis was notified Other plan: Follow-up with ID consult Continue routine postop/ care Continue iron twice a day with stool softener orally Follow-up at 2 weeks and 6 weeks postop with OB clinic after discharge from the hospital tomorrow Plan of care and follow-up for positive syphilis lab will be discussed by ID attending to the patient OTTO MACIAS MD July 29, 2018 19:44
[2018-07-29 20:30] VITALS: BP 120/73; PULSE 66; RESP 18
--- NOTE | 2018-07-29 23:07 | PD.PPDC ---
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
--- NOTE | 2018-07-29 23:12 | DS ---
Date/Time of Note Date/Time of Note DATE: 07/29/18 TIME: 23:10 Obstetrical Discharge Record Final Diagnosis Final Diagnosis: delivered Other Final Diagnosis s/p RC/S Section Section: Repeat Complications Augmentation: No Induction: No Rupture of Membranes: No Condition on Discharge Physical Assessment Last Vitals: VSS afebrile infectious disease consultation was obtained which clear the patient to be discharged Voiding: Yes Bowel Movement: Yes Breast: Soft, non-tender Abdomen and Incision: soft healing Calf Tenderness: No Patient Condition: Stable VAMSI PELAYO MD July 29, 2018 23:12
--- NOTE | 2018-07-30 04:02 | CONS ---
DATE OF ADMISSION: 07/26/2018 DATE OF CONSULTATION: TYPE OF CONSULTATION: Infectious disease for Dr. Ricardo Narayanan. REASON FOR CONSULTATION: The patient has a positive RPR of 1:4. HISTORY OF PRESENT ILLNESS: The patient is a 33-year-old white female who has currently been admitte d for . She is currently . Her child also has blood tests of 1:4. Confirmatory tests are pending. The patient state s that she has had positive titers prior to her last child, at which time she and the baby were treat ed. She apparently has remained serofast. She states that her first child got IV penicillin and she was at 3 doses 1 week apart of injectable penicillin. The patient has had no fever, rash, arthralgi a. Urine culture is positive for 50,000 to 60,000 gram mixed gram-positive organisms compatible with contamination. No clinical significance. Laboratory reveals a glucose of 112. No hemoglobin or he matocrit is obtainable. PHYSICAL EXAMINATION: GENERAL: This is a well-developed, tall white female lying in bed, holding her child in hook of her right arm. Child is asleep. The patient is alert, oriented and cooperative. VITAL SIGNS: Her temperature is 98.2, pulse 60, respirations 18, blood pressure 118/72, pulse oximet ry is 99%. NECK: Supple. No jugular venous distention. BREASTS: Engorged. CHEST: Clear. HEART: Regular. No gallop, murmur or rub. ABDOMEN: Soft. There is palpable uterus. EXTREMITIES: Reveal no edema or cyanosis. IMPRESSION: 1. Status live births. 2. Serofast syphilis. RECOMMENDATIONS: The patient needs no treatment and the child needs no treatment as a child is simpl y reflecting maternal antibody burden. Thank you for referring this patient to Dr. Narayanan. Dictated By: Kasey MOYA MD EC/NTS Conf#: [id number] DID#: [id number] CC: HALIMA CHAVEZ MD; CECI MEJÍA MD;*EndCC*
--- NOTE | 2018-07-31 00:14 | DELSUM ---
Delivery Summary A-C Datetime Report Generated by CPN: 07/31/2018 00:14 DELIVERY PERSONNEL Geodetic Engineer: Tawana Hernandez MATERNAL INFORMATION Delivery Anesthesia: Spinal Medications in Delivery: See anesthesia notes Delivery QBL (ml): 600 Placenta Cultured: No Maternal Complications: None RN Comments: history of x4 sections LABOR SUMMARY EDC: 08/28/2018 00:00 No. Babies in Womb: 1 Attempted: No Labor Anesthesia: None LABOR INFORMATION Reason for Induction: Not Applicable Oxytocin: N/A Group B Beta Strep: Not Done Antibiotics # of Doses: 3 (x2 Ancef and x1 Azithromycin) Antibiotics Time of Last Dose: 07/26/2018 20:01 Steroids Given: None Reason Steroids Not Administered: Not Applicable MEMBRANES Membranes Rupture Method: Artificial Rupture of Membranes: 07/26/2018 20:03 Length of Rupture (hr): 0.02 Amniotic Fluid Color: Clear Amniotic Fluid Amount: Moderate Amniotic Fluid Odor: Normal STAGES OF LABOR Stage 3 hr: 0 Stage 3 min: 1 CSECTION DELIVERY Primary Indication: Repeat Elective Secondary Indication: N/A CSection Urgency: Elective CSection Incidence: Repeat Labor: Labor Elective: Elective CSection Incision: Lower Uterine Transverse BABY A INFORMATION Delivery Date/Time: 07/26/2018 20:04 Method of Delivery: Born in Route : No : N/A Forceps: N/A Vacuum Extraction: N/A Shoulder Dystocia : N/A SHOULDER DYSTOCIA BABY A Delivery Date/Time: 07/26/2018 20:04 PRESENTATION/POSITION BABY A Presentation: Cephalic Cephalic Presentation: Vertex Breech Presentation: N/A PLACENTA INFORMATION BABY A Placenta Delivery Time : 07/26/2018 20:05 Placenta Method of Delivery: Manual Removal Placenta Status: Delivered SCORES BABY A Heart Rate 1 min: >100 bpm Resp Effort 1 min: Good Cry Reflex Irritability 1 min: Cough/Sneeze/Pulls Away Muscle Tone 1 min: Active Motion Color 1 min: Blue/Pale Resuscitation Effort 1 min: Tactile Stimulation SCORE 1 MIN: 8 Heart Rate 5 min: >100 bpm Resp Effort 5 min: Good Cry Reflex Irritability 5 min: Cough/Sneeze/Pulls Away Muscle Tone 5 min: Active Motion Color 5 min: Body [place], Extremit Blue Resuscitation Effort 5 min: N/A SCORE 5 MIN: 9 INFORMATION BABY A Gestational Age at Delivery: 35.2 Gestational Status: Late - 34- 36.6 Weeks Infant Outcome : Liveborn Infant Condition : Stable Infant Sex: Female IDENTIFICATION/MEDS BABY A ID Band Number: [id number] ID Band Location: Right Leg; Left Arm Sensor Applied: Yes Sensor Number: [id number] Sensor Location : Cord Clamp Vitamin K Given : Not Given Erythromycin Given: Not Given WEIGHT/LENGTH BABY A Birthweight (gm): 3190 Weight (lb): 7 Infant Weight (oz): 1 Length (in): 20.00 Infant Length (cm): 50.80 CORD INFORMATION BABY A No. Cord Vessels: 3 Nuchal Cord : N/A Cord Blood Taken: Yes Infant Suction: Mouth; Nose ASSESSMENT BABY A Complications: Decreased Variability Physical Findings at Delivery: Within Normal Limits Respirations: Appears Normal Enroller/ALS Called : Yes Infant Care By: Rl Garcia and Eleuterio Cespedes RN Transferred To: Remains with Mother
== END 2018-07-29 23:45 | disposition home or self-care (01) | DRG 786 ==
LOC: L-D 13:54 → OBT 13:54 → L-D 14:45 → PP1 23:40
PROVIDERS: ADMIT Obstetrics & Gynecology Gynecology; ATTEND Obstetrics & Gynecology Gynecology
PROC: 10D00Z1 Extraction of Products of Conception, Low, Open Approach (ICD-10-PCS; principal; 2018-07-26 19:30)
DX: O65.5 Obstructed labor due to abnormality of maternal pelvic organs (principal); O60.13X0 Preterm labor second trimester with preterm delivery third trimester, not applicable or unspecified; D62 Acute posthemorrhagic anemia; O34.211 Maternal care for low transverse scar from previous cesarean delivery; O99.02 Anemia complicating childbirth; Z3A.35 35 weeks gestation of pregnancy; Z37.0 Single live birth
CPT/HCPCS: 36415; 36430; 76815; 76817; 76818; 80053; 80307; 81001; 82728; 83540; 83735; 85014; 85018; 85025; 85610; 85730; 86592; 86703; 86803; 86850; 86900; 86901; 86920; 87086; 87285; 87340; 96360; 99464; G0463; J0690; J0702; J1100; J1200; J1885; J2175; J2210; J2270; J2274; J2370; J2405; J2590; J2765; J2916; J2920; J3105; J3475; J7120; P9016

== ENCOUNTER 2018-09-04 16:56 | Observation (INO) | payer OTHER ==
[~2018-09-04] VITALS: Ht 182.9 cm; Wt 80.4 kg
[2018-09-04 20:00] VITALS: Ht 182.9 cm; Wt 80.4 kg
[2018-09-04] MEDS ORDERED: ONDANSETRON 4 MG INJ IV PRN (20:00)
[2018-09-04] MEDS ORDERED: ACETAMINOPHEN 325 MG TAB PO PRN ×2 (20:00→20:30)
--- NOTE | 2018-09-04 20:28 | ERD ---
ER Documentation Chief Complaint Chief Complaint Pt with c/o weakness since july, hx of anemia and blood transfusion HPI 33-year-old female presenting with generalized weakness for the past 1 month. She states that she has a history of anemia her whole life. However after her 1 month ago, she had worsening anemia that required blood transfusion. At that time, she states that she was told she may have sickle cell disease. However she has never had work-up for sickle cell disease before. Her mother and grandmother both have sickle cell disease. Patient has had vaginal bleeding over the past 1 month that recently resolved. Today she was playing with her child when she is suddenly felt left-sided chest pain and shortness of breath. She had associated generalized weakness. Currently she is complaining of mild left-sided chest pain that is worse with inspiration. Her symptoms have been intermittent today. No leg swelling. No fevers or chills. No cough. ROS All systems reviewed and are negative except as per history of present illness. Medications Home Meds Reported Medications Calcium Carbonate* (Calcium Carbonate*) 600 MG Ca Tab, 600 MG PO DAILY, TAB 05/20/17 Ferrous Sulfate (Iron) 134 Mg Tablet, 134 MG PO DAILY, TAB 05/20/17 [id number] ( 19) 1 Each Tablet, 1 TAB PO DAILY, TAB 05/20/17 Allergies Allergies: Coded Allergies: fish derived (Verified Allergy, Unknown, 05/21/17) iodine (Verified Allergy, Unknown, 05/20/17) mercury (elemental) (Verified Allergy, Unknown, 05/20/17) PMhx/Soc History of Surgery: Yes (, tonsilectomy) Anesthesia Reaction: No Hx Neurological Disorder: No Hx Respiratory Disorders: No Hx Cardiac Disorders: No Hx Psychiatric Problems: Yes (depression) Hx Miscellaneous Medical Probl: Yes (anemia) Hx Alcohol Use: No Hx Substance Use: Yes (former) Hx Tobacco Use: No Smoking Status: Former smoker FmHx Mother and grandmother have sickle cell disease Physical Exam Vitals Vital Signs Date Temp Pulse Resp B/P (MAP) Pulse Ox O2 O2 Flow FiO2 Time Delivery Rate 09/04/18 53 14 96/55 (69) 100 Room Air 19:00 09/04/18 60 20 99/66 (77) 99 Room Air 18:30 09/04/18 98.3 68 20 98/54 (80) 99 17:01 Physical Exam Const: No acute distress Head: Atraumatic Eyes: Normal Conjunctiva ENT: Dry mucous membranes. Normal External Ears, Nose and Mouth. Neck: Full range of motion. No meningismus. No JVD Resp: Clear to auscultation bilaterally Cardio: Regular rate and rhythm, no murmurs. 2+ distal pulses Abd: Soft, non tender, non distended. Normal bowel sounds Skin: No petechiae or rashes Back: No midline or flank tenderness Ext: No cyanosis, or edema Neur: Awake and alert Psych: Normal Mood and Affect Result Diagram: 09/04/18 1737 09/04/18 1737 Results 24 hrs Laboratory Tests Test 09/04/18 17:37 White Blood Count 5.1 10^3/ul Red Blood Count 4.41 10^6/ul Hemoglobin 11.3 g/dl Hematocrit 36.1 % Mean Corpuscular Volume 81.9 fl Mean Corpuscular Hemoglobin 25.6 pg Mean Corpuscular Hemoglobin Concent 31.3 g/dl Red Cell Distribution Width 25.0 % Platelet Count 279 10^3/UL Mean Platelet Volume 9.1 fl Immature Granulocytes % 0.000 % Neutrophils % 65.1 % Lymphocytes % 23.8 % Monocytes % 7.6 % Eosinophils % 3.1 % Basophils % 0.4 % Nucleated Red Blood Cells % 0.0 /100WBC Immature Granulocytes # 0.000 10^3/ul Neutrophils # 3.3 10^3/ul Lymphocytes # 1.2 10^3/ul Monocytes # 0.4 10^3/ul Eosinophils # 0.2 10^3/ul Basophils # 0.0 10^3/ul Nucleated Red Blood Cells # 0.0 10^3/ul Sickle Cells NEGATIVE Absolute Reticulocyte Count 0.036 X10^6 Percent Reticulocyte Count 0.8 % Sodium Level 142 mmol/L Potassium Level 3.8 mmol/L Chloride Level 108 mmol/L Carbon Dioxide Level 27 mmol/L Anion Gap 7 Blood Urea Nitrogen 10 mg/dl Creatinine 0.87 mg/dl Est Glomerular Filtrat Rate mL/min > 60 mL/min Glucose Level 94 mg/dl Calcium Level 9.0 mg/dl Magnesium Level 2.2 mg/dl Troponin I < 0.012 ng/ml Serum HCG, Qualitative NEGATIVE Procedures/MDM EMERGENT LABS AND DIAGNOSTIC STUDIES: Lab Results above were reviewed and interpreted by me. CBC: no anemia or evidence of infection BMP: no e/o clinically significant electrolyte abnormality severe acidosis, alkalosis, renal failure, diabetic ketoacidosis Troponin within normal limits, not indicative of cardiac ischemia negative UA: no evidence of infection 12-lead EKG #1 was interpreted by Dale Molina MD: Sinus bradycardia at 57 bpm Normal axis Normal intervals Diffuse T wave inversions No acute ST or T wave changes suggestive of acute ischemia or STEMI. 12-lead EKG #2 was interpreted by Dale Molina MD: Sinus bradycardia at 52 bpm Normal axis Normal intervals Anterior nonspecific T wave abnormality No acute ST or T wave changes suggestive of acute ischemia or STEMI. Radiology Results as interpreted by Radiology below were reviewed by Allie Molina MD: Chest x-ray shows no acute abnormalities Initial Nursing notes reviewed. Previous Medical Records requested via the Electronic Health Record. EMERGENCY DEPARTMENT COURSE / MEDICAL DECISION MAKING: Patient is presenting with generalized weakness and new onset chest pain with shortness of breath with exertion. Vitals were unremarkable upon arrival. EKG did show evidence of possible ischemia. Work-up did not show any evidence of significant anemia that would explain her symptoms. Initial troponin was within normal limits. Repeat EKG showed some improvement in the T wave changes seen on initial EKG. At this time, the cause of her pain is unclear. I did consider pulmonary embolism and discussed this with the admitting doctor. Further studies will be deferred to the inpatient physician. Patient will be admitted for observation on telemetry. The patient was concerned about possible anemia as the cause for her symptoms. Given the possibility of undiagnosed sickle cell disease, sickle cell screen was done and was negative. Accepting Care Team: Current data and ongoing care discussed. Time: Time of admission Primary Provider: Dr. Dima Goff Diagnosis: Primary Impression: Chest pain Chest pain type: other chest pain Qualified Codes: R07.89 - Other chest pain Additional Impressions: Generalized weakness Anemia, chronic disease Condition: Fair MENA MOLINA MD Sep 04, 2018 20:28
[2018-09-04] MEDS ORDERED: NACL 0.9% 3 ML SYG IV SCH (20:30)
[2018-09-04] MEDS ORDERED: NITROGLYCERIN (SL) 0.4 MG TAB SL PRN (20:30)
[2018-09-04] MEDS ORDERED: morphine 2 MG INJ IV PRN (20:30)
[2018-09-04] MEDS ORDERED: SOD CHLORIDE 0.9% 500 ML IV ONE (20:30)
[2018-09-04] MEDS ORDERED: BISACODYL (EC) 5 MG TAB PO PRN (20:30)
[2018-09-04] MEDS ORDERED: DOCUSATE SODIUM 100 MG CAP PO PRN (20:30)
[2018-09-04 20:51] VITALS: BP 103/58; PULSE 61; RESP 18
--- NOTE | 2018-09-04 22:59 | HP ---
Date/Time of Note Date/Time of Note DATE: 09/04/18 TIME: 22:59 Assessment/Plan VTE Prophylaxis Pharmacological prophylaxis: LMWH Lines/Catheters IV Catheter Type (from Nrs): Saline Lock Assessment/Plan Hospital Course This is a 33-year female being admitted to the telemetry floor for: #1 chest pain: Rule out ACS versus pulmonary embolism versus arrhythmia versus cardiomyopathy. Patient does report generalized weakness and episodes of chest pain over the last month. She reports pleuritic pain on inspiration. Will obtain a CT of the chest to rule out pulmonary embolism especially given her hypercoagulable state being . EKG shows sinus bradycardia with telemetry monitoring showing heart rate going down to his low as the 30s. Will check an echocardiogram. TSH, Urine drug screen. Will trend cardiac enzymes. Will consult cardiology #2 iron deficiency anemia: We will check iron stores, currently her hemoglobin is at an acceptable value. Watch hemoglobin closely. #3 history of syphilis: Patient was seen during her previous admission in regards to this patient was treated in the past. She was still found positive for RPR. She will need to repeat labs as an outpatient in January 2019 and July 2019 #4 DVT GI prophylaxis: Lovenox, no GI prophylaxis indicated Further treatment strategy will be implemented for clinical course Result Diagram: 09/04/18 1737 09/04/18 1737 Results 24hrs Laboratory Tests Test 09/04/18 17:37 09/04/18 20:09 09/04/18 20:19 White Blood Count 5.1 # Red Blood Count 4.41 # Hemoglobin 11.3 #L Hematocrit 36.1 #L Mean Corpuscular Volume 81.9 L Mean Corpuscular Hemoglobin 25.6 L Mean Corpuscular Hemoglobin Concent 31.3 L Red Cell Distribution Width 25.0 #H Platelet Count 279 Mean Platelet Volume 9.1 Immature Granulocytes % 0.000 L Neutrophils % 65.1 Lymphocytes % 23.8 Monocytes % 7.6 Eosinophils % 3.1 Basophils % 0.4 Nucleated Red Blood Cells % 0.0 Immature Granulocytes # 0.000 Neutrophils # 3.3 Lymphocytes # 1.2 Monocytes # 0.4 Eosinophils # 0.2 Basophils # 0.0 Nucleated Red Blood Cells # 0.0 Sickle Cells NEGATIVE Absolute Reticulocyte Count 0.036 Percent Reticulocyte Count 0.8 Sodium Level 142 Potassium Level 3.8 Chloride Level 108 Carbon Dioxide Level 27 Anion Gap 7 Blood Urea Nitrogen 10 Creatinine 0.87 Est Glomerular Filtrat Rate mL/min > 60 Glucose Level 94 Calcium Level 9.0 Magnesium Level 2.2 Troponin I < 0.012 Serum HCG, Qualitative NEGATIVE Urine Color YELLOW Urine Clarity CLEAR Urine pH 6.0 Urine Specific [place] 1.019 Urine Ketones NEGATIVE Urine Nitrite NEGATIVE Urine Bilirubin NEGATIVE Urine Urobilinogen NEGATIVE Urine Leukocyte Esterase NEGATIVE Urine Hemoglobin NEGATIVE Urine Glucose NEGATIVE Urine Total Protein NEGATIVE POC Beta HCG, Qualitative NEGATIVE HPI/ROS Admit Date/Time Admit Date/Time Sep 04, 2018 at 19:41 Hx of Present Illness Chief complaint: Generalized weakness, chest pain 33-year-old female presenting with generalized weakness for the past 1 month. She states that she has a history of anemia her whole life. However after her 1 month ago, she had worsening anemia that required blood transfusion. At that time, she states that she was told she may have sickle cell disease. However she has never had work-up for sickle cell disease before. Her mother and grandmother both have sickle cell disease. Patient has had vaginal bleeding over the past 1 month that recently resolved. Today she was playing with her child when she is suddenly felt left-sided chest pain and shortness of breath. She had associated generalized weakness since her delivery.. She does report pleuritic chest pain on inspiration.. Her symptoms have been intermittent today. Denies any leg swelling or orthopnea. Allergies: NKDA Medications: Iron supplements ROS Const: As per HPI Eyes : No pain discharge or redness or change in visual acuity ENT: No pain, sore throat, congestion, congestion, dysphagia or discharge Respiratory: As per HPI Cardiovascular: As per HPI GI : no change in appetite, abdominal pain, nausea, vomiting, diarrhea, constipation, or change in the color his stool Genitourinary: No dysuria, hematuria, flank pain , discharge or CVA tenderness Musculoskeletal: No joint pain, back pain, neck pain, restricted range of motion in neck or joints Skin: No rash, bruising or hives Neuro: No headache, dizziness, syncope, seizure, focal weakness Endocrine: No polyuria, polydipsia, temperature intolerance Psych: No hallucination, depression, anxiety or suicidal ideation PMH/Family/Social Past Medical History Chronic anemia, iron deficiency, history of syphilis Medications Current Medications Ondansetron HCl (Zofran Inj) 4 mg ER BRIDGE PRN IV NAUSEA/VOMITING; Start 09/04/18 at 20:00; Stop 09/05/18 at 19:59 Acetaminophen (Tylenol Tab) 650 mg ER BRIDGE PRN PO .MILD PAIN 1-3 OR TEMP; Start 09/04/18 at 20:00; Stop 09/05/18 at 19:59 Calcium Carbonate (Oyster Shell Calcium) 1.25 gm DAILY PO ; Start 09/05/18 at 09:00 Miscellaneous Information 134 mg DAILY PO ; Start 09/05/18 at 09:00; Status UNV IV Flush (NS 3 ml) 3 ml PER PROTOCOL IV ; Start 09/04/18 at 20:30 Nitroglycerin (Nitroglycerin (Sl Tab) 0.4 Mg) 1 tab Q5M PRN SL .CHEST PAIN; Start 09/04/18 at 20:30 Acetaminophen (Tylenol Tab) 650 mg Q6H PRN PO .PAIN 1-3 OR TEMP; Start 09/04/18 at 20:30 Morphine Sulfate (morphine) 2 mg Q4H PRN IV .PAIN 7-10; Start 09/04/18 at 20:30 Docusate Sodium (Colace) 100 mg Q12H PRN PO .CONSTIPATION; Start 09/04/18 at 20:30 Bisacodyl (Dulcolax) 5 mg DAILY PRN PO .CONSTIPATION; Start 09/04/18 at 20:30 Coded Allergies: fish derived (Verified Allergy, Unknown, 05/21/17) iodine (Verified Allergy, Unknown, 05/20/17) mercury (elemental) (Verified Allergy, Unknown, 05/20/17) Past Surgical History x5 Family History Significant Family History: no pertinent family hx Social History Alcohol Use: none Smoking Status: Never smoker Drug Use: none Exam/Review of Systems Vital Signs Vitals Vital Signs Date Temp Pulse Resp B/P (MAP) Pulse Ox O2 O2 Flow FiO2 Time Delivery Rate 09/04/18 98.1 61 18 103/58 98 20:51 (73) 09/04/18 Room Air 20:00 Exam Exam General: Patient is currently lying in bed in no acute distress, she does appear lethargic HEENT: Atraumatic, normocephalic. The pupils are equal, round and reactive. Extraocular motor are intact Neck: Supple with full range of motion. No rigidity or meningismus Chest: Nontender Lungs: Clear to auscultation bilaterally no crackles rales or wheezing Heart: Normal S1-S2, Regular rhythm and rate. No overt murmurs appreciated on auscultation Abdomen: Soft , nontender, nondistended , bowel sounds are present. No guarding no rebound tenderness , No masses or organomegaly. No costovertebral temporal angle mass Extremities: Normal to inspection, no edema no cyanosis Neurologic: Normal mental status, speech normal, cranial nerves II through XII are intact, motor and sensory are intact, Additional Comments EKG: Sinus bradycardia, with T wave inversions PROCEDURE: XR Chest. CLINICAL INDICATION: Chest pain TECHNIQUE: A single AP view of the chest was obtained. COMPARISON: None. FINDINGS: No focal airspace opacification, pleural effusion or pneumothorax is seen. The cardiomediastinal silhouette is within normal limits for size. The osseous structures are unremarkable. IMPRESSION: Unremarkable chest x-ray. RPTAT: HH .Cris Mandel MD, MD Date Time Electronically viewed and signed by .Cris Mandel MD, MD on 09/04/2018 18:56 .G/ CC: MENA JACKSON MD [id number] KRISTIN ARROYO Sep 04, 2018 22:59
[2018-09-04] MEDS ORDERED: IOHEXOL 100 ML ONE (23:02)
[2018-09-04] MEDS ORDERED: SOD CHLORIDE 0.9% 100 ML ONE (23:02)
[2018-09-05] VITALS (7 sets, daily range): BP systolic 94–107; BP diastolic 50–64; PULSE 47–60; RESP 18–20
[2018-09-05] MEDS: FERROUS SULFATE (EC) 325 MG TAB PO SCH (08:28)
[2018-09-05] MEDS: CALCIUM CARBONATE 1.25 GM TAB PO SCH (08:28)
[2018-09-05] MEDS: ENOXAPARIN 40 MG/0.4 ML SYG SC SCH (08:33)
--- NOTE | 2018-09-05 10:25 | PN ---
Date/Time of Note Date/Time of Note DATE: 09/05/18 TIME: 10:25 Assessment/Plan VTE Prophylaxis Risk score (from Ns)>0 risk: 1 [place] [facility] [place] contraindicated: patient refusal Pharmacological prophylaxis: LMWH Lines/Catheters [facility] Saline Lock Assessment/Plan Hospital Course SUBJECTIVE: Feeling tired. Denies any chest pain at this time. OBJECTIVE: Physical Exam General: Adequately build 33 year-old female lying in bed in no apparent distress. HEENT: Normocephalic, atraumatic. Eyes: Anicteric sclerae, conjunctivae clear. ENT: Nasal septum midline, oral mucosa moist. Neck supple. Respiratory: Bilaterally clear breath sounds. No use of accessory muscles of respiration. No adventitious breath sounds. Cardiovascular: S1, S2 heard. No murmurs or gallops. Abdomen: Soft, nontender, and nondistended. Bowel sounds positive in all 4 quadrants. Genitourinary: Deferred. Extremities: No cyanosis, no clubbing, no edema. Peripheral pulses palpable. Neurologic: Cranial nerves II through XII grossly intact. The patient is awake, alert, and oriented. Skin: Normal skin turgor. No skin rashes. Multiple tattoos. Labs & Vitals per chart ASSESSMENT & PLAN This is a 33-year-old female who has a remote history of syphilis with no other significant past medical history who came to the emergency room with chief complaint of generalized weakness and chest pain, who was found to have underlying significant bradycardia and was admitted to inpatient setting for further treatment and evaluation. 1. Chest pain. Atypical in nature. Troponins negative so far. Pending 2D echocardiogram. Pending cardiology consult. CTA negative for any PE. 2. Bradycardia. Continue telemetry monitoring. Pending cardiology consult. TSH WNL. 3. History of syphilis. Status post treatment. Repeat labs as outpatient to be done in January 2019 and July 2019. 4. History of iron deficiency anemia. Iron panel showing adequate iron levels. Continue iron supplements. 5. Status post recent on 07/26/2018. Patient currently not breast-feeding. 6. Fluids, electrolytes, and nutrition. Regular diet. 7. DVT prophylaxis. Subcutaneous Lovenox. 8. Plan. Continue telemetry monitoring. Await cardiology evaluation. Obtain a urine drug screen. The patient was seen in collaboration with Dr. Hightower. Result Diagram: 09/05/18 0456 09/05/18 0456 Results 24hrs Laboratory Tests Test 09/04/18 17:37 09/04/18 20:09 09/04/18 20:19 09/04/18 23:05 White Blood Count 5.1 # Red Blood Count 4.41 # Hemoglobin 11.3 #L Hematocrit 36.1 #L Mean Corpuscular 81.9 L Volume Mean Corpuscular 25.6 L Hemoglobin Mean Corpuscular 31.3 L Hemoglobin Concent Red Cell 25.0 #H Distribution Width Platelet Count 279 Mean Platelet Volume 9.1 Immature 0.000 L Granulocytes % Neutrophils % 65.1 Lymphocytes % 23.8 Monocytes % 7.6 Eosinophils % 3.1 Basophils % 0.4 Nucleated Red Blood 0.0 Cells % Immature 0.000 Granulocytes # Neutrophils # 3.3 Lymphocytes # 1.2 Monocytes # 0.4 Eosinophils # 0.2 Basophils # 0.0 Nucleated Red Blood 0.0 Cells # Sickle Cells NEGATIVE Absolute 0.036 Reticulocyte Count Percent Reticulocyte 0.8 Count Sodium Level 142 Potassium Level 3.8 Chloride Level 108 Carbon Dioxide Level 27 Anion Gap 7 Blood Urea Nitrogen 10 Creatinine 0.87 Est Glomerular > 60 Filtrat Rate mL/min Glucose Level 94 Calcium Level 9.0 Magnesium Level 2.2 Troponin I < 0.012 < 0.012 Serum HCG, NEGATIVE Qualitative Urine Color YELLOW Urine Clarity CLEAR Urine pH 6.0 Urine Specific 1.019 [place] Urine Ketones NEGATIVE Urine Nitrite NEGATIVE Urine Bilirubin NEGATIVE Urine Urobilinogen NEGATIVE Urine Leukocyte NEGATIVE Esterase Urine Hemoglobin NEGATIVE Urine Glucose NEGATIVE Urine Total Protein NEGATIVE POC Beta HCG, NEGATIVE Qualitative Creatine Kinase 43 Creatine Kinase 0.5 Index Creatinine Kinase MB < 0.22 (Mass) Test 09/05/18 04:56 White Blood Count 4.8 Red Blood Count 4.28 Hemoglobin 11.0 L Hematocrit 35.2 L Mean Corpuscular 82.2 Volume Mean Corpuscular 25.7 L Hemoglobin Mean Corpuscular 31.3 L Hemoglobin Concent Red Cell Distribution Width Platelet Count 288 Mean Platelet Volume 9.7 Immature 0.200 Granulocytes % Neutrophils % 54.6 Lymphocytes % 30.2 Monocytes % 10.3 Eosinophils % 4.1 Basophils % 0.6 Nucleated Red Blood 0.0 Cells % Immature 0.010 Granulocytes # Neutrophils # 2.6 Lymphocytes # 1.5 Monocytes # 0.5 Eosinophils # 0.2 Basophils # 0.0 Nucleated Red Blood 0.0 Cells # Sodium Level 142 Potassium Level 4.0 Chloride Level 106 Carbon Dioxide Level 25 Anion Gap 11 Blood Urea Nitrogen 12 Creatinine 0.79 Est Glomerular > 60 Filtrat Rate mL/min Glucose Level 84 Hemoglobin A1c 4.7 Calcium Level 9.1 Magnesium Level 1.9 Iron Level 64 Total Iron Binding 287 Capacity Percent Iron 22 Saturation Ferritin 24.5 Total Bilirubin 0.3 Direct Bilirubin 0.00 Indirect Bilirubin 0.3 Aspartate Amino 12 L Transf (AST/SGOT) Alanine 13 Aminotransferase (AL T/SGPT) Alkaline Phosphatase 56 Creatine Kinase 39 Creatine Kinase 0.6 Index Creatinine Kinase MB < 0.22 (Mass) Troponin I < 0.012 Total Protein 6.2 Albumin 3.5 Globulin 2.70 Albumin/Globulin 1.29 Ratio Thyroid Stimulating 1.200 Hormone (TSH) Exam/Review of Systems Exam Vitals Vital Signs Date Temp Pulse Resp B/P (MAP) Pulse Ox O2 O2 Flow FiO2 Time Delivery Rate 09/05/18 98.2 49 18 96/54 (68) 100 Room Air 07:05 09/05/18 2.0 02:59 Intake and Output 09/04/18 09/04/18 09/05/18 1515:00 23:00 07:00 IntakeIntake Total 500 ml BalanceBalance 500 ml Results Results 24hrs Laboratory Tests Test 09/04/18 17:37 09/04/18 20:09 09/04/18 20:19 09/04/18 23:05 White Blood Count 5.1 # Red Blood Count 4.41 # Hemoglobin 11.3 #L Hematocrit 36.1 #L Mean Corpuscular 81.9 L Volume Mean Corpuscular 25.6 L Hemoglobin Mean Corpuscular 31.3 L Hemoglobin Concent Red Cell 25.0 #H Distribution Width Platelet Count 279 Mean Platelet Volume 9.1 Immature 0.000 L Granulocytes % Neutrophils % 65.1 Lymphocytes % 23.8 Monocytes % 7.6 Eosinophils % 3.1 Basophils % 0.4 Nucleated Red Blood 0.0 Cells % Immature 0.000 Granulocytes # Neutrophils # 3.3 Lymphocytes # 1.2 Monocytes # 0.4 Eosinophils # 0.2 Basophils # 0.0 Nucleated Red Blood 0.0 Cells # Sickle Cells NEGATIVE Absolute 0.036 Reticulocyte Count Percent Reticulocyte 0.8 Count Sodium Level 142 Potassium Level 3.8 Chloride Level 108 Carbon Dioxide Level 27 Anion Gap 7 Blood Urea Nitrogen 10 Creatinine 0.87 Est Glomerular > 60 Filtrat Rate mL/min Glucose Level 94 Calcium Level 9.0 Magnesium Level 2.2 Troponin I < 0.012 < 0.012 Serum HCG, NEGATIVE Qualitative Urine Color YELLOW Urine Clarity CLEAR Urine pH 6.0 Urine Specific 1.019 [place] Urine Ketones NEGATIVE Urine Nitrite NEGATIVE Urine Bilirubin NEGATIVE Urine Urobilinogen NEGATIVE Urine Leukocyte NEGATIVE Esterase Urine Hemoglobin NEGATIVE Urine Glucose NEGATIVE Urine Total Protein NEGATIVE POC Beta HCG, NEGATIVE Qualitative Creatine Kinase 43 Creatine Kinase 0.5 Index Creatinine Kinase MB < 0.22 (Mass) Test 09/05/18 04:56 White Blood Count 4.8 Red Blood Count 4.28 Hemoglobin 11.0 L Hematocrit 35.2 L Mean Corpuscular 82.2 Volume Mean Corpuscular 25.7 L Hemoglobin Mean Corpuscular 31.3 L Hemoglobin Concent Red Cell Distribution Width Platelet Count 288 Mean Platelet Volume 9.7 Immature 0.200 Granulocytes % Neutrophils % 54.6 Lymphocytes % 30.2 Monocytes % 10.3 Eosinophils % 4.1 Basophils % 0.6 Nucleated Red Blood 0.0 Cells % Immature 0.010 Granulocytes # Neutrophils # 2.6 Lymphocytes # 1.5 Monocytes # 0.5 Eosinophils # 0.2 Basophils # 0.0 Nucleated Red Blood 0.0 Cells # Sodium Level 142 Potassium Level 4.0 Chloride Level 106 Carbon Dioxide Level 25 Anion Gap 11 Blood Urea Nitrogen 12 Creatinine 0.79 Est Glomerular > 60 Filtrat Rate mL/min Glucose Level 84 Hemoglobin A1c 4.7 Calcium Level 9.1 Magnesium Level 1.9 Iron Level 64 Total Iron Binding 287 Capacity Percent Iron 22 Saturation Ferritin 24.5 Total Bilirubin 0.3 Direct Bilirubin 0.00 Indirect Bilirubin 0.3 Aspartate Amino 12 L Transf (AST/SGOT) Alanine 13 Aminotransferase (AL T/SGPT) Alkaline Phosphatase 56 Creatine Kinase 39 Creatine Kinase 0.6 Index Creatinine Kinase MB < 0.22 (Mass) Troponin I < 0.012 Total Protein 6.2 Albumin 3.5 Globulin 2.70 Albumin/Globulin 1.29 Ratio Thyroid Stimulating 1.200 Hormone (TSH) Medications Medication Current Medications Ondansetron HCl (Zofran Inj) 4 mg ER BRIDGE PRN IV NAUSEA/VOMITING; Start 09/04/18 at 20:00; Stop 09/05/18 at 19:59 Acetaminophen (Tylenol Tab) 650 mg ER BRIDGE PRN PO .MILD PAIN 1-3 OR TEMP; Start 09/04/18 at 20:00; Stop 09/05/18 at 19:59 Calcium Carbonate (Oyster Shell Calcium) 1.25 gm DAILY PO Last administered on 09/05/18at 08:28; Admin Dose 1.25 GM; Start 09/05/18 at 09:00 Ferrous Sulfate (Ferrous Sulfate (Ec)) 325 mg DAILY PO Last administered on 09/05/18at 08:28; Admin Dose 325 MG; Start 09/05/18 at 09:00 IV Flush (NS 3 ml) 3 ml PER PROTOCOL IV ; Start 09/04/18 at 20:30 Nitroglycerin (Nitroglycerin (Sl Tab) 0.4 Mg) 1 tab Q5M PRN SL .CHEST PAIN; Start 09/04/18 at 20:30 Acetaminophen (Tylenol Tab) 650 mg Q6H PRN PO .PAIN 1-3 OR TEMP; Start 09/04/18 at 20:30 Morphine Sulfate (morphine) 2 mg Q4H PRN IV .PAIN 7-10; Start 09/04/18 at 20:30 Docusate Sodium (Colace) 100 mg Q12H PRN PO .CONSTIPATION; Start 09/04/18 at 20:30 Bisacodyl (Dulcolax) 5 mg DAILY PRN PO .CONSTIPATION; Start 09/04/18 at 20:30 Enoxaparin Sodium (Lovenox) 40 mg DAILY SC Last administered on 09/05/18at 08:33; Admin Dose 40 MG; Start 09/05/18 at 09:00 JOSEPH BEDOLLA NP Sep 05, 2018 10:25
--- NOTE | 2018-09-05 15:49 | RADRPT ---
Echocardiogram Report Patient Name: David DICKtient ID: [id number] : 1985 (33y 6m)Study Date: 09/05/2018 7:57:21 AM Gender: FAccession #: [id number] Tech: Vincent Mayo KE Location: 60- Ref.Physician: KRISTIN ARROYO Height(Cm): BSA: Weight(Kg): Quality: AdequateOrder Physician: KRISTIN ARROYO Account #: Procedures: Echocardiographic Report: Transthoracic echocardiogram with complete 2D, M-Mode, and doppler examination. Indications: Chest Pain. Measurements: 2D/M Mode Doppler Measurement Value Normal Range Measurement Value Normal Range LVIDd 2D 3.4 [ 3.8 - 5.2 ] cm AV Peak Christoph 1.3 [ 100.0 - 170.0 ] cm/se c LVIDs 2D 2.3 [ 2.2 - 3.5 ] cm AV Peak PG 6.0 [ 2.0 - 9.0 ] mmHg LVPWd 2D 0.8 [ 0.6 - 0.9 ] cm LVOT Peak Christoph 0.8 [ 70.0 - 110.0 ] cm/sec IVSd 2D 0.7 [ 0.6 - 0.9 ] cm LVOT Peak PG 3.0 [ 2.0 - 6.0 ] mmHg AoR Diam 2D 2.4 [ 2.3 - 3.1 ] cm MV E Peak Christoph 0.7 [ 60.0 - 130.0 ] cm/sec EDV 2D 46.1 [ 46.0 - 106.0 ] ml MV A Peak Christoph 0.5 [ 100.0 - 120.0 ] cm/se c ESV 2D 17.1 [ 14.0 - 42.0 ] ml MV E/A 1.6 [ 0.8 - 1.5 ] ratio EF 2D 62.9 [ 54.0 - 74.0 ] percent MV PHT 60.0 [ 20.0 - 100.0 ] msec LA Dimen 2D 2.7 [ 2.7 - 3.8 ] cm MV Decel Time 204 [ 104 - 258 ] msec MV Decel [place] 4 Lat E` Christoph 0.1 [ 10.0 - 15.0 ] cm/sec Lateral E/E` 5.0 [ 1.0 - 2.0 ] ratio Med E` Christoph 0.1 cm/sec MV E/A 1.6 [ 0.8 - 1.5 ] ratio MVA PHT 3.7 [ 2.0 - 4.0 ] cm2 TR Peak Christoph 2.0 [ 100.0 - 280.0 ] cm/se c TR Peak PG 17.0 mmHg PV Peak Christoph 1.1 [ 40.0 - 80.0 ] cm/sec PV Peak PG 4.0 mmHg Findings: Left Ventricle: Normal left ventricular systolic function. Normal left ventricular cavity size. Normal left ventricular wall thickness. Ejection fraction is visually estimated at 55-60 %. Tissue Doppler/Mitral Doppler indices are within normal limits. Right Ventricle: Normal right ventricular size. Normal right ventricular systolic function. Left Atrium: The left atrium is normal in size. Right Atrium: The right atrium is normal in size. Atrial Septum: Normal atrial septum. Ventricular septum: Normal/intact ventricular septum. Mitral Valve: Normal appearance of the mitral valve. No mitral valve regurgitation is seen. Aortic Valve: Normal appearance of the aortic valve. No aortic regurgitation. Tricuspid Valve: Normal appearance of the tricuspid valve. The estimated Peak RVSP is 19 mmHg. There is mild tricuspid regurgitation. Pulmonic Valve: Normal pulmonic valve appearance. No evidence of pulmonic regurgitation. Pericardium: Normal pericardium with no significant pericardial effusion. Aorta: Normal aortic root. IVC: Normal size and normal respiratory collapse consistent with normal right atrial pressure. Conclusions: Normal left ventricular systolic function. Normal left ventricular cavity size. Normal left ventricular wall thickness. Ejection fraction is visually estimated at 55-60 %. Tissue Doppler/Mitral Doppler indices are within normal limits. No significant valvular stenosis or regurgitation seen. The estimated Peak RVSP is 19 mmHg. Normal size and normal respiratory collapse consistent with normal right atrial pressure. Electronically Signed By: Cullen Funk 2018-09-05 15:48:43 PDT
--- NOTE | 2018-09-05 16:05 | CONS ---
Assessment/Plan Assessment/Plan Hospital Course (Demo Recall) Orthostatic dizziness: she thinks she hydrates well but possibly from dehydration. Sinus bradycardia on tele does not explain this. EF is normal Chest pain: pleuritic and possibly muscular. CTA normal. Trops and echo normal. Subtle TW changes on EKG are nonspecific. No suspicion for CAD Anemia: last month was 7.3. Here 11. Either it recovered or she is hemoconcentrated Recent C section -check orthostatics -hydrate if positive -otherwise ok for d/c from cardiac perspective. No further testing indicated Consultation Date/Type/Reason Admit Date/Time Sep 04, 2018 at 19:41 Date of Consultation: Sep 05, 2018 Type of Consult Cardiology Reason for Consultation Chest pain Requesting Provider: KRISTIN ARROOY Date/Time of Note DATE: 09/05/18 TIME: 15:58 Hx of Present Illness 33 yo F with h/o anemia and family h/o sickle cell, recent C section requiring transfusions, who presented due to weakness, dizziness, chest pain. She notes that since delivery, when she stands up from a seated position she feels very dizzy and near syncopal. She thought it was from her anemia so she came in for evaluation. She also had one episode of sharp left sided/lateral chest pain with deep inspiration that worried her. She had a chest CTA which was negative for PE. She has diffuse subtle TW changes on EKG and trops were normal. Overall feels better and no further chest pain. In general no chest pain with exertion. Her main concern is the dizziness as she has a and 1 yr old at home. No first degree family members with heart disease. Tele shows sinus bradycardia es pecially during sleep per HPI Past Medical History per HPI Home Meds Reported Medications Calcium Carbonate* (Calcium Carbonate*) 600 MG Ca Tab, 600 MG PO DAILY, TAB 05/20/17 Ferrous Sulfate (Iron) 134 Mg Tablet, 134 MG PO DAILY, TAB 05/20/17 [id number] ( 19) 1 Each Tablet, 1 TAB PO DAILY, TAB 05/20/17 Medications Current Medications Ondansetron HCl (Zofran Inj) 4 mg ER BRIDGE PRN IV NAUSEA/VOMITING; Start 09/04/18 at 20:00; Stop 09/05/18 at 19:59 Acetaminophen (Tylenol Tab) 650 mg ER BRIDGE PRN PO .MILD PAIN 1-3 OR TEMP; Start 09/04/18 at 20:00; Stop 09/05/18 at 19:59 Calcium Carbonate (Oyster Shell Calcium) 1.25 gm DAILY PO Last administered on 09/05/18at 08:28; Admin Dose 1.25 GM; Start 09/05/18 at 09:00 Ferrous Sulfate (Ferrous Sulfate (Ec)) 325 mg DAILY PO Last administered on 09/05/18at 08:28; Admin Dose 325 MG; Start 09/05/18 at 09:00 IV Flush (NS 3 ml) 3 ml PER PROTOCOL IV ; Start 09/04/18 at 20:30 Nitroglycerin (Nitroglycerin (Sl Tab) 0.4 Mg) 1 tab Q5M PRN SL .CHEST PAIN; Start 09/04/18 at 20:30 Acetaminophen (Tylenol Tab) 650 mg Q6H PRN PO .PAIN 1-3 OR TEMP; Start 09/04/18 at 20:30 Morphine Sulfate (morphine) 2 mg Q4H PRN IV .PAIN 7-10; Start 09/04/18 at 20:30 Docusate Sodium (Colace) 100 mg Q12H PRN PO .CONSTIPATION; Start 09/04/18 at 20:30 Bisacodyl (Dulcolax) 5 mg DAILY PRN PO .CONSTIPATION; Start 09/04/18 at 20:30 Enoxaparin Sodium (Lovenox) 40 mg DAILY SC Last administered on 09/05/18at 08:33; Admin Dose 40 MG; Start 09/05/18 at 09:00 Allergies: Coded Allergies: fish derived (Verified Allergy, Unknown, 05/21/17) iodine (Verified Allergy, Unknown, 05/20/17) mercury (elemental) (Verified Allergy, Unknown, 05/20/17) Social History Alcohol Use: none Smoking Status: Never smoker Drug Use: none Exam/Review of Systems Vital Signs Vitals Vital Signs Date Temp Pulse Resp B/P (MAP) Pulse Ox O2 O2 Flow FiO2 Time Delivery Rate 09/05/18 98.2 60 19 99/58 (72) 98 Room Air 15:00 09/05/18 2.0 02:59 Intake and Output 09/04/18 09/04/18 09/05/18 1515:00 23:00 07:00 IntakeIntake Total 500 ml BalanceBalance 500 ml Exam Constitutional: alert, oriented Psych: no complaints, nl mood/affect Head: normocephalic, atraumatic Neck: supple; No jvd Respiratory: clear to auscultation; No crackles/rales Cardiovascular: regular rate and rhythm; No edema, No systolic murmur Gastrointestinal: soft, non-tender; No distended Neurological: nl mental status, nl speech Labs Result Diagram: 09/05/18 0456 09/05/18 0456 Results 24hrs Laboratory Tests Test 09/04/18 17:37 09/04/18 20:09 09/04/18 20:19 09/04/18 23:05 White Blood Count 5.1 # Red Blood Count 4.41 # Hemoglobin 11.3 #L Hematocrit 36.1 #L Mean Corpuscular 81.9 L Volume Mean Corpuscular 25.6 L Hemoglobin Mean Corpuscular 31.3 L Hemoglobin Concent Red Cell 25.0 #H Distribution Width Platelet Count 279 Mean Platelet Volume 9.1 Immature 0.000 L Granulocytes % Neutrophils % 65.1 Lymphocytes % 23.8 Monocytes % 7.6 Eosinophils % 3.1 Basophils % 0.4 Nucleated Red Blood 0.0 Cells % Immature 0.000 Granulocytes # Neutrophils # 3.3 Lymphocytes # 1.2 Monocytes # 0.4 Eosinophils # 0.2 Basophils # 0.0 Nucleated Red Blood 0.0 Cells # Sickle Cells NEGATIVE Absolute 0.036 Reticulocyte Count Percent Reticulocyte 0.8 Count Sodium Level 142 Potassium Level 3.8 Chloride Level 108 Carbon Dioxide Level 27 Anion Gap 7 Blood Urea Nitrogen 10 Creatinine 0.87 Est Glomerular > 60 Filtrat Rate mL/min Glucose Level 94 Calcium Level 9.0 Magnesium Level 2.2 Troponin I < 0.012 < 0.012 Serum HCG, NEGATIVE Qualitative Urine Color YELLOW Urine Clarity CLEAR Urine pH 6.0 Urine Specific 1.019 [place] Urine Ketones NEGATIVE Urine Nitrite NEGATIVE Urine Bilirubin NEGATIVE Urine Urobilinogen NEGATIVE Urine Leukocyte NEGATIVE Esterase Urine Hemoglobin NEGATIVE Urine Glucose NEGATIVE Urine Total Protein NEGATIVE POC Beta HCG, NEGATIVE Qualitative Creatine Kinase 43 Creatine Kinase 0.5 Index Creatinine Kinase MB < 0.22 (Mass) Test 09/05/18 04:56 09/05/18 11:50 White Blood Count 4.8 Red Blood Count 4.28 Hemoglobin 11.0 L Hematocrit 35.2 L Mean Corpuscular 82.2 Volume Mean Corpuscular 25.7 L Hemoglobin Mean Corpuscular 31.3 L Hemoglobin Concent Red Cell Distribution Width Platelet Count 288 Mean Platelet Volume 9.7 Immature 0.200 Granulocytes % Neutrophils % 54.6 Lymphocytes % 30.2 Monocytes % 10.3 Eosinophils % 4.1 Basophils % 0.6 Nucleated Red Blood 0.0 Cells % Immature 0.010 Granulocytes # Neutrophils # 2.6 Lymphocytes # 1.5 Monocytes # 0.5 Eosinophils # 0.2 Basophils # 0.0 Nucleated Red Blood 0.0 Cells # Sodium Level 142 Potassium Level 4.0 Chloride Level 106 Carbon Dioxide Level 25 Anion Gap 11 Blood Urea Nitrogen 12 Creatinine 0.79 Est Glomerular > 60 Filtrat Rate mL/min Glucose Level 84 Hemoglobin A1c 4.7 Calcium Level 9.1 Magnesium Level 1.9 Iron Level 64 Total Iron Binding 287 Capacity Percent Iron 22 Saturation Ferritin 24.5 Total Bilirubin 0.3 Direct Bilirubin 0.00 Indirect Bilirubin 0.3 Aspartate Amino 12 L Transf (AST/SGOT) Alanine 13 Aminotransferase (AL T/SGPT) Alkaline Phosphatase 56 Creatine Kinase 39 Creatine Kinase 0.6 Index Creatinine Kinase MB < 0.22 (Mass) Troponin I < 0.012 Total Protein 6.2 Albumin 3.5 Globulin 2.70 Albumin/Globulin 1.29 Ratio Thyroid Stimulating 1.200 Hormone (TSH) Urine Opiates Screen Negative Urine Barbiturates Negative Urine Amphetamines Negative Screen Urine Negative Benzodiazepines Screen Urine Cocaine Screen Negative Urine Cannabinoids Negative Medications Medications Current Medications Ondansetron HCl (Zofran Inj) 4 mg ER BRIDGE PRN IV NAUSEA/VOMITING; Start 09/04/18 at 20:00; Stop 09/05/18 at 19:59 Acetaminophen (Tylenol Tab) 650 mg ER BRIDGE PRN PO .MILD PAIN 1-3 OR TEMP; Start 09/04/18 at 20:00; Stop 09/05/18 at 19:59 Calcium Carbonate (Oyster Shell Calcium) 1.25 gm DAILY PO Last administered on 09/05/18at 08:28; Admin Dose 1.25 GM; Start 09/05/18 at 09:00 Ferrous Sulfate (Ferrous Sulfate (Ec)) 325 mg DAILY PO Last administered on 09/05/18at 08:28; Admin Dose 325 MG; Start 09/05/18 at 09:00 IV Flush (NS 3 ml) 3 ml PER PROTOCOL IV ; Start 09/04/18 at 20:30 Nitroglycerin (Nitroglycerin (Sl Tab) 0.4 Mg) 1 tab Q5M PRN SL .CHEST PAIN; Start 09/04/18 at 20:30 Acetaminophen (Tylenol Tab) 650 mg Q6H PRN PO .PAIN 1-3 OR TEMP; Start 09/04/18 at 20:30 Morphine Sulfate (morphine) 2 mg Q4H PRN IV .PAIN 7-10; Start 09/04/18 at 20:30 Docusate Sodium (Colace) 100 mg Q12H PRN PO .CONSTIPATION; Start 09/04/18 at 20:30 Bisacodyl (Dulcolax) 5 mg DAILY PRN PO .CONSTIPATION; Start 09/04/18 at 20:30 Enoxaparin Sodium (Lovenox) 40 mg DAILY SC Last administered on 09/05/18at 08:33; Admin Dose 40 MG; Start 09/05/18 at 09:00 NICOLASA JULIAN Sep 05, 2018 16:05
[2018-09-06 04:00] VITALS: BP 93/50; PULSE 61; RESP 20
--- NOTE | 2018-09-06 07:35 | PDOCDIS ---
Discharge Instructions CONDITION [id number] Patient Condition: [id number] Stable HOME CARE INSTRUCTIONS: [id number] Diet Instructions: [id number] Regular OTHER ORDERS: Other Orders: 1. Resume home medications. 2. Resume activities as tolerated. 3. Take a regular diet. 4. Follow-up with your primary care physician in 2 weeks. 5. Please go to the nearest emergency room if you have any significant chest pain, significant shortness of breath, persistent fevers, or any other unusual signs/symptoms. JOSEPH BEDOLLA NP Sep 06, 2018 07:35
[2018-09-06 07:49] VITALS: BP 98/56; PULSE 53; RESP 18
[2018-09-06] MEDS ORDERED: FERR134T PO (08:04)
[2018-09-06] MEDS: CALCIUM CARBONATE 1.25 GM TAB PO SCH (08:48)
[2018-09-06] MEDS: FERROUS SULFATE (EC) 325 MG TAB PO SCH (08:48)
[2018-09-06] MEDS: ENOXAPARIN 40 MG/0.4 ML SYG SC SCH (08:54)
--- NOTE | 2018-09-06 09:27 | CONS ---
Assessment/Plan Assessment/Plan Hospital Course (Demo Recall) Orthostatic dizziness: Sinus bradycardia on tele does not explain this. EF is normal. Orthostatics normal. Resolving Chest pain: pleuritic and possibly muscular. CTA normal. Trops and echo normal. Subtle TW changes on EKG are nonspecific. No suspicion for CAD. Normal EF Anemia: last month was 7.3. Here 11. Either it recovered or she is hemoconcent rated Recent C section -ok for d/c from cardiac perspective. No further testing indicated Consultation Date/Type/Reason Admit Date/Time Sep 04, 2018 at 19:41 Initial Consult Date 09/05/18 Type of Consult Cardiology Requesting Provider: KRISTIN ARROYO Date/Time of Note DATE: 09/06/18 TIME: 09:26 24 HR Interval Summary Free Text/Dictation No events. HR 50s at rest, normal with activity. Still mild dizziness when standing up. Orthostatics normal. Exam/Review of Systems Vital Signs Vitals Vital Signs Date Temp Pulse Resp B/P (MAP) Pulse Ox O2 O2 Flow FiO2 Time Delivery Rate 09/06/18 98.3 53 18 98/56 (70) 98 Room Air 07:49 09/05/18 2.0 02:59 Intake and Output 09/05/18 09/05/18 09/06/18 1515:00 23:00 07:00 IntakeIntake Total 1400 ml 300 ml BalanceBalance 1400 ml 300 ml Exam Constitutional: alert, oriented Psych: no complaints, nl mood/affect Head: normocephalic, atraumatic Neck: No jvd Respiratory: clear to auscultation; No crackles/rales Cardiovascular: regular rate and rhythm; No edema, No systolic murmur Gastrointestinal: soft, non-tender; No distended Neurological: nl mental status, nl speech Labs Result Diagram: 09/05/18 0456 09/05/18 0456 Results 24hrs Laboratory Tests Test 09/05/18 11:50 Urine Opiates Screen Negative Urine Barbiturates Negative Urine Amphetamines Screen Negative Urine Benzodiazepines Screen Negative Urine Cocaine Screen Negative Urine Cannabinoids Negative Medications Medications Current Medications Calcium Carbonate (Oyster Shell Calcium) 1.25 gm DAILY PO Last administered on 09/06/18at 08:48; Admin Dose 1.25 GM; Start 09/05/18 at 09:00 Ferrous Sulfate (Ferrous Sulfate (Ec)) 325 mg DAILY PO Last administered on 09/06/18at 08:48; Admin Dose 325 MG; Start 09/05/18 at 09:00 IV Flush (NS 3 ml) 3 ml PER PROTOCOL IV ; Start 09/04/18 at 20:30 Nitroglycerin (Nitroglycerin (Sl Tab) 0.4 Mg) 1 tab Q5M PRN SL .CHEST PAIN; Start 09/04/18 at 20:30 Acetaminophen (Tylenol Tab) 650 mg Q6H PRN PO .PAIN 1-3 OR TEMP; Start 09/04/18 at 20:30 Morphine Sulfate (morphine) 2 mg Q4H PRN IV .PAIN 7-10; Start 09/04/18 at 20:30 Docusate Sodium (Colace) 100 mg Q12H PRN PO .CONSTIPATION; Start 09/04/18 at 20:30 Bisacodyl (Dulcolax) 5 mg DAILY PRN PO .CONSTIPATION; Start 09/04/18 at 20:30 Enoxaparin Sodium (Lovenox) 40 mg DAILY SC Last administered on 09/06/18at 08:54; Admin Dose 40 MG; Start 09/05/18 at 09:00 NICOLASA JULIAN Sep 06, 2018 09:27
--- NOTE | 2018-09-06 09:39 | DS ---
Date/Time of Note Date/Time of Note DATE: 09/06/18 TIME: 09:38 Discharge Summary Admission/Discharge Info Admit Date/Time Sep 04, 2018 at 19:41 Discharge Date/Time Discharge Diagnosis 1. Atypical chest pain. 2. Bradycardia. 3. History of syphilis (serofast status). 4. History of iron deficiency anemia. 5. Status post recent on 07/26/2018. Patient Condition: Stable Consults 1. Cullen Funk MD, Cardiology. Procedures 2D Echocardiogram Conclusions: Normal left ventricular systolic function. Normal left ventricular cavity size. Normal left ventricular wall thickness. Ejection fraction is visually estimated at 55-60 %. Tissue Doppler/Mitral Doppler indices are within normal limits. No significant valvular stenosis or regurgitation seen. The estimated Peak RVSP is 19 mmHg. Normal size and normal respiratory collapse consistent with normal right atrial pressure. [place] [id number] Radiology Main Line: [phone] DIAGNOSTIC IMAGING REPORT Patient: NAN DICK : 1985 Age: 33 Sex: F MR #: [id number] DOS: 09/04/18 0000 Ordering MD: KRISTIN ARROYO MD Location: 6WM Room/Bed: [facility] PROCEDURE: CTA Chest. CLINICAL INDICATION: , chest pain, shortness of breath. TECHNIQUE: Direct spiral axial sections were obtained from the thoracic inlet to the upper abdomen with the use of 100 cc of Omnipaque-350 nonionic i ntravenous contrast material. Coronal and sagittal reformations were obtained. 3D volume rendered (or MIP) imaging was performed. DICOM images are available. The images were reviewed on a PACS workstation. CTDIvol: 42.25, 9.45 mGy. DLP: 344.45 mGy-cm. One or more of the following dose reduction techniques were used: - Automated exposure control. - Adjustment of the mA and/or kV according to patient size. - Use of iterative reconstruction technique. COMPARISON: None. FINDINGS: There is no pulmonary embolism. The main pulmonary artery is borderline enlarged (3.1 cm). There is no aortic aneurysm or dissection. The heart is not enlarged. There is no pericardial effusion. There are mild dependent atelectatic changes in the lungs. There is no pulmonary edema or consolidation. No pleural effusion or pneumothorax is identified. No suspicious thyroid lesion is seen. There is no thoracic lymphadenopathy. The trachea and mainstem bronchi are patent. Limited evaluation of the upper abdomen is unremarkable. There is no suspicious osseous lesion. IMPRESSION: No pulmonary embolism. No pulmonary edema or consolidation. RPTAT: HTAR .Enrike Luong MD, MD Date Time Hx of Present Illness This is a 33-year-old female who has a remote history of syphilis with no other significant past medical history who came to the emergency room with chief complaint of generalized weakness and chest pain, who was found to have underlying significant bradycardia and was admitted to inpatient setting for further treatment and evaluation. Hospital Course The patient's symptomatology was extensively evaluated. CT angiogram of the chest that was negative for any pulmonary embolism. The patient's troponins remainED negative. The patient's 2D echocardiogram was showing preserved left ventricular ejection fraction. The patient's chest pain could have been most probably musculoskeletal in origin. The patient had underlying bradycardia. This was evaluated by cardiology and recommended no further cardiac work-up. The patient was also complaining of orthostatic dizziness. The patient's orthostatics were normal. The patient was also screened for any recreational d rugs in her system and this was negative. The patient has prior history of anemia and she was on iron supplements. The patient's hemoglobin was more than 11 throughout the hospital course. The patient's iron panel showed appropriate levels. Despite, she was given iron supplements provided the patient's history of iron deficiency. The patient has a remote history of syphilis. She is status post treatment. Repeat labs as outpatient needs to be done in January 2019 in July 2019 as per ID recommendations on her prior hospitalization to [facility] in July 2018 for delivery of her baby. Patient is status post recent on 07/26/2018. The patient is currently not breast feeding. The patient had a stable hospital course. The patient's symptomatology has improved. The patient was cleared by cardiology to be discharged home. Discharge Instructions 1. Resume home medications. 2. Resume activities as tolerated. 3. Take a regular diet. 4. Follow-up with your primary care physician in 2 weeks. 5. Please go to the nearest emergency room if you have any significant chest pain, significant shortness of breath, persistent fevers, or any other unusual signs/symptoms. The patient verbalized understanding of her discharge instructions. At this time I would like to thank for seeing the patient and providing clinical recommendations. The patient was seen in collaboration with Dr. Gutierres. Home Meds Active Scripts Ferrous Sulfate (Iron) 134 Mg Tablet, 134 MG PO DAILY, #30 TAB Prov:JOSEPH BEDOLLA NP 09/06/18 Discontinued Reported Medications Calcium Carbonate* (Calcium Carbonate*) 600 MG Ca Tab, 600 MG PO DAILY, TAB 05/20/17 [id number] ( 19) 1 Each Tablet, 1 TAB PO DAILY, TAB 05/20/17 Follow-up Plan The patient to follow-up with her primary care physician 1 to 2 weeks. Primary Care Provider Not On Staff Doctor Time spent on discharge: > 30 minutes Pending Labs Laboratory Tests Test 09/05/18 11:50 Urine Opiates Screen Negative (NEGATIVE) Urine Barbiturates Negative (NEGATIVE) Urine Amphetamines Screen Negative (NEGATIVE) Urine Benzodiazepines Screen Negative (NEGATIVE) Urine Cocaine Screen Negative (NEGATIVE) Urine Cannabinoids Negative (NEGATIVE) JOSEPH BEDOLLA NP Sep 06, 2018 09:39
[2018-09-06 11:22] VITALS: BP 101/54; PULSE 60; RESP 18
== END 2018-09-06 11:35 | disposition home or self-care (01) ==
LOC: E/R 16:56 → 6WM 19:41
PROVIDERS: ADMIT Family Medicine; ATTEND Family Medicine
DX: R07.89 Other chest pain (principal); R00.1 Bradycardia, unspecified; A53.9 Syphilis, unspecified; D50.9 Iron deficiency anemia, unspecified; Z87.891 Personal history of nicotine dependence
CPT/HCPCS: 36415; 71045; 71275; 80048; 80053; 80307; 81003; 81025; 82550; 82553; 82728; 83036; 83540; 83735; 84100; 84443; 84484; 84703; 85025; 85045; 85610; 85660; 85730; 86850; 86900; 86901; 93005; 93306; 93970; J1650; J7040; Q9967; Z7500; Z7502; Z7610; G0378

== ENCOUNTER 2018-10-22 03:54 | Emergency (ER) | payer OTHER ==
[~2018-10-22] VITALS: Ht 177.8 cm; Wt 70.9 kg
[~2018-10-22 03:54] MED LIST changes: -CALC600T24 PO; -PNV11TAB PO
[2018-10-22 03:57] VITALS: Ht 177.8 cm; Wt 70.9 kg
--- NOTE | 2018-10-22 04:01 | ERD ---
ER Documentation Chief Complaint Chief Complaint C/O WEAKNESS AND DIZZINESS X2 , HX OF ANEMIA ROS All systems reviewed and are negative except as per history of present illness. Medications Home Meds Active Scripts Ferrous Sulfate (Iron) 134 Mg Tablet, 134 MG PO DAILY, #30 TAB Prov:JOSEPH BEDOLLA CHILD WELFARE DIRECTOR 09/06/18 Allergies Allergies: Coded Allergies: fish derived (Verified Allergy, Unknown, 05/21/17) iodine (Verified Allergy, Unknown, 05/20/17) mercury (elemental) (Verified Allergy, Unknown, 05/20/17) PMhx/Soc History of Surgery: Yes (C -SECTION) Anesthesia Reaction: No Hx Neurological Disorder: No Hx Respiratory Disorders: No Hx Cardiac Disorders: Yes Hx Psychiatric Problems: Yes Hx Miscellaneous Medical Probl: No Hx Alcohol Use: No Hx Substance Use: No Hx Tobacco Use: No Physical Exam Vitals Vital Signs Date Temp Pulse Resp B/P (MAP) Pulse Ox O2 O2 Flow FiO2 Time Delivery Rate 10/22/18 97.8 71 17 120/81 98 Room Air 04:07 (94) 10/22/18 97.8 69 17 111/73 98 03:57 (86) Physical Exam Const: No acute distress Head: Atraumatic Eyes: Normal Conjunctiva ENT: Normal External Ears, Nose and Mouth. Neck: Full range of motion. No meningismus. Resp: Clear to auscultation bilaterally Cardio: Regular rate and rhythm, no murmurs Abd: Soft, non tender, non distended. Normal bowel sounds Skin: No petechiae or rashes Back: No midline or flank tenderness Ext: No cyanosis, or edema Neur: Awake and alert Psych: Normal Mood and Affect KARLA BROCK MD Oct 22, 2018 04:01
[2018-10-22 04:07] VITALS: BP 120/81; PULSE 71; RESP 17
== END 2018-10-22 06:37 | disposition left against medical advice (07) ==
LOC: E/R 03:54
DX: Z53.21 Procedure and treatment not carried out due to patient leaving prior to being seen by health care provider (principal)